=== PATIENT | male | born 1955 | race Caucasian/White ===

== ENCOUNTER 2024-06-17 14:15 | Emergency (ER) | payer MEDICARE, OTHER, SELFPAY ==
[2024-06-17] VITALS (12 sets, daily range): BP systolic 145–149; BP diastolic 75–88; PULSE 67; TEMP 36.8; O2SAT 96–98; BMI 23.1
--- NOTE | 2024-06-17 14:53 | ED.GENADUL1 ---
HPI HPI - General Adult General Chief complaint: Abdominal Pain Stated complaint: LEFT SIDE PAIN Time Seen by Provider: 06/17/24 14:27 Source: patient Mode of arrival: walk-in Limitations: no limitations History of Present Illness HPI narrative: 69-year-old male presents for left flank pain. It has been there for 2 days continuously. No injury or unusual activity. No dysuria or hematuria. He is worried about his spleen because his daughter who is a nurse told him it might be his spleen. He has never had a kidney stone. No anterior abdominal pain or right sided pain. Related Data Home Medications ?Medication ?Instructions ?Recorded ?Confirmed aspirin 81 mg tablet,delayed 81 mg PO DAILY 06/17/24 06/17/24 release (Adult Aspirin Regimen) tamsulosin 0.4 mg capsule 0.4 mg PO BEDTIME 06/17/24 06/17/24 trazodone 100 mg tablet 100 mg PO BEDTIME 06/17/24 06/17/24 Allergies Allergy/AdvReac Type Severity Reaction Status Date / Time No Known Drug Allergies Allergy Verified 06/17/24 14:44 Opioid HPI Opioid Management Most Recent Opioid Data: No Data to Display Review of Systems ROS Narrative A ten point review of systems is negative except as noted above. Exam Narrative Exam Narrative: Nurses note and vital signs reviewed and patient is not hypoxic. General: The patient appears well and in no apparent distress. Patient is resting comfortably on cart. Skin: Warm, dry, no pallor noted. There is no rash noted. Head: Normocephalic, atraumatic Eye: Normal conjunctiva, no drainage Ears, Nose, Mouth, and Throat: oral mucosa is moist. Nares patent. Cardiovascular: Regular Rate and Rhythm Respiratory: Patient is in no distress, no accessory muscle use, lungs are clear to auscultation, no wheezing, rales or rhonchi Back: non-tender, no CVA tenderness bilaterally to percussion. GI: Soft and nontender. The left flank area is examined there is no bruise or rash or abrasion. No palpable tenderness. Musculoskeletal: The patient has no evidence of calf tenderness, no pitting edema, symmetrical pulses noted bilaterally Neurological: A&O, normal speech Psychiatric: Cooperative Constitutional Vital Signs, click to edit/add: Last Vital Signs Temp 98.2 F 06/17/24 14:44 Pulse 67 06/17/24 14:44 Resp 18 06/17/24 14:44 BP 149/88 H 06/17/24 14:44 Pulse Ox 98 06/17/24 14:44 O2 Del Method Room Air 06/17/24 14:44 Course Vital Signs Vital signs: Vital Signs Temperature 98.2 F 06/17/24 14:44 Pulse Rate 67 06/17/24 14:44 Respiratory Rate 18 06/17/24 14:44 Blood Pressure 149/88 H 06/17/24 14:44 Pulse Oximetry 98 06/17/24 14:44 Oxygen Delivery Method Room Air 06/17/24 14:44 Temperature 98.2 F 06/17/24 14:44 Pulse Rate 67 06/17/24 14:44 Respiratory Rate 18 06/17/24 14:44 Blood Pressure 149/88 H 06/17/24 14:44 Pulse Oximetry 98 06/17/24 14:44 Oxygen Delivery Method Room Air 06/17/24 14:44 Medical Decision Making MDM Narrative Medical decision making narrative: CAT scan shows no explanation for his pain. Urinalysis and blood work is negative. The possibility of muscle pain was discussed with the patient and he is going to be discharged home. Treatment diagnosis and follow-up were discussed with the patient. There is no rash to suggest shingles. Differential Diagnosis Differential Diagnosis: AAA, kidney stone, UTI, muscle pain Lab Data Lab results reviewed: Yes I reviewed the patient's lab results Labs: Lab Results 06/17/24 Range/Units 14:50 WBC 8.0 (4.0-11.0) 10^3/uL RBC 4.83 (4.70-6.10) 10^6/uL Hgb 14.0 (14.0-18.0) g/dL Hct 42.8 (42.0-54.0) % MCV 88.6 (80.0-94.0) fL MCH 29.0 (25.9-34.0) pg MCHC 32.7 (29.9-35.2) g/dL RDW 13.2 (11.0-15.0) % Plt Count 331 (150-450) 10^3/uL MPV 9.9 (9.5-13.5) fL Neut % (Auto) 71.0 (43.0-75.0) % Lymph % (Auto) 18.0 L (20.5-60.0) % Garrett % (Auto) 8.4 (1.7-12.0) % Eos % (Auto) 0.9 (0.9-7.0) % Baso % (Auto) 1.3 (0.2-2.0) % Neut # (Auto) 5.7 (1.4-6.5) 10^3/uL Lymph # (Auto) 1.4 (1.2-3.8) 10^3/uL Garrett # (Auto) 0.7 (0.3-0.8) 10^3/uL Eos # (Auto) 0.1 (0.0-0.7) 10^3/uL Baso # (Auto) 0.1 (0.0-0.1) 10^3/uL Abs Immat Gran (auto) 0.03 (0.00-0.03) 10^3/uL Imm/Tot Granulo (auto) 0.4 (0.0-0.5) % Sodium 138 (136-145) mmol/L Potassium 4.3 (3.5-5.1) mmol/L Chloride 103 (98-107) mmol/L Carbon Dioxide 26.3 (21.0-32.0) mmol/L Anion Gap 13.0 BUN 19.0 H (7.0-18.0) mg/dL Creatinine 1.00 (0.70-1.30) mg/dL Est GFR ( Amer) >60 (>=60) Est GFR (Non-Af Amer) >60 (>=60) BUN/Creatinine Ratio 19.0 Glucose 90 (74-106) mg/dL Calcium 8.8 (8.5-10.1) mg/dL Urine Color Lt. yellow (YELLOW) Urine Clarity Clear (CLEAR) Urine pH 6.0 (5.0-9.0) Ur Specific [place] 1.025 (1.005-1.025) Urine Protein Negative (NEG/TRACE) mg/dL Urine Glucose (UA) Negative (NEGATIVE) mg/dL Urine Ketones Trace A (NEGATIVE) mg/dL Urine Occult Blood Negative (NEGATIVE) Urine Nitrite Negative (NEGATIVE) Urine Bilirubin Negative (NEGATIVE) Urine Urobilinogen 0.2 (0.2-1.0) EU/dL Ur Leukocyte Esterase Negative (NEGATIVE) Urine RBC None seen (0-2) #/HPF Urine WBC None seen (NONE SEEN) #/HPF Ur Squamous Epith Cells Rare (NONE/RARE) #/LPF Urine Crystals None seen (None Seen) #/HPF Urine Bacteria Trace A (NONE SEEN) #/HPF Urine Casts Seen A (NONE SEEN) #/LPF Hyaline Casts Rare Urine Mucus Trace A (NONE SEEN) Ur Culture Indicated? No Imaging Data CT scan - abdomen: Radiologist's impression: ITS Impressions Abdomen/Pelvis CT 06/17/24 15:01 IMPRESSION: 1. Bilateral nonobstructing nephrolithiasis. There are a few tiny 1 to 2 mm stones within the kidneys. No acute findings. 2. Marked diverticulosis of the colon. No acute inflammatory changes or suspicious findings. 3. Prominent wall thickening of urinary bladder; muscular hypertrophy versus cystitis. Poorly defined wall margins suggests possible cystitis. Electronically authenticated by: ASHER MARTE Date: 06/17/2024 15:37 Discharge Plan Discharge Stand Alone Forms: Portal Instructions Chief Complaint: Abdominal Pain Clinical Impression: Left flank pain Patient Disposition: Home, Self-Care Time of Disposition Decision: 15:52 Condition: Good Mode of Transportation: Private Vehicle Prescriptions / Home Meds: No Action tamsulosin 0.4 mg capsule 0.4 mg PO BEDTIME trazodone 100 mg tablet 100 mg PO BEDTIME aspirin [Adult Aspirin Regimen] 81 mg tablet,delayed release (DR/EC) 81 mg PO DAILY Print Language: Sammarinese Instructions: Flank Pain (ED) Referrals: Physician,Non-Staff, MD [Primary Care Provider] - 1 week
--- NOTE | 2024-06-17 15:01 | CT_ITS ---
[address] [address] Patient Name: TEZ MEJIA MRN: [id number] date: 1955 Sex: M Assigned Patient Location: ER Current Patient Location: Accession/Order Number: [id number] Exam Date: 06/17/2024 14:59 Report Date: 06/17/2024 15:37 At the request of: ALLIE BRAR Procedure: CT abdomen pelvis wo con EXAMINATION: CT abdomen pelvis wo con HISTORY: left flank pain, r/o stone COMPARISON: No relevant comparison available. TECHNIQUE: Axial, Coronal, and Sagittal images were obtained without and/or with IV contrast as indicated by examination type. Dose reduction techniques were achieved by using automated exposure control and/or adjustment of mA and/or kV according to patient size and/or use of iterative reconstruction technique. FINDINGS: LUNG BASES: No visible pulmonary or pleural disease. LIVER: No enlargement, atrophy, suspicious density, or significant focal lesion. BILIARY: No dilatation or calcification. PANCREAS: No lesion, fluid collection, or abnormal duct dilatation. SPLEEN: No enlargement or focal lesion. ADRENALS: No mass or enlargement. KIDNEYS: A few tiny 1-2 mm nonobstructing stones within kidneys. Unremarkable ureters. BOWEL/MESENTERY: Marked diverticulosis throughout the entire length of the colon. No visible mass, obstruction, or bowel wall thickening. AORTA/VASCULAR: Marked atherosclerotic disease. No aneurysm or dissection. RETROPERITONEUM: No mass or adenopathy. LYMPH NODES: No adenopathy. URINARY BLADDER: Circumferential wall thickening up to 1 cm. PELVIC ORGANS: Slightly prominent heterogeneous prostate. ABDOMINAL WALL: No mass or hernia. BONES: No bony lesion or fracture. OTHER: Negative. CT/CT abdomen pelvis wo con IMPRESSION: 1. Bilateral nonobstructing nephrolithiasis. There are a few tiny 1 to 2 mm stones within the kidneys. No acute findings. 2. Marked diverticulosis of the colon. No acute inflammatory changes or suspicious findings. 3. Prominent wall thickening of urinary bladder; muscular hypertrophy versus cystitis. Poorly defined wall margins suggests possible cystitis. Electronically authenticated by: ASHER MARTE Date: 06/17/2024 15:37
[2024-06-17 15:10] LABS: Bilirubin Urine NEGATIVE (NEGATIVE); Blood Urine NEGATIVE (NEGATIVE); Clarity Urine CLEAR (CLEAR); Color Urine LT. YELLOW (YELLOW); Glucose Urine UA NEGATIVE (NEGATIVE); Ketones Urine TRACE mg/dL (NEGATIVE); Leukocyte Esterase Urine NEGATIVE (NEGATIVE); Nitrite Urine NEGATIVE (NEGATIVE); Protein Urine NEGATIVE (NEG/TRACE); Specific Gravity Urine 1.025 (1.005-1.025); Urobilinogen Urine 0.2 EU/dL (0.2-1.0)
[2024-06-17 15:18] LABS: Calcium 8.8 mg/dL (8.5-10.1); Carbon Dioxide 26.3 mmol/L (21.0-32.0); Chloride 103 mmol/L (98-107); Estimated GFR (African America >60 (>=60); Estimated GFR (Non-African Ame >60 (>=60); Glucose 90 mg/dL (74-106); Potassium 4.3 mmol/L (3.5-5.1); Sodium 138 mmol/L (136-145)
[2024-06-17 15:21] LABS: Bacteria Urine TRACE #/HPF (NONE SEEN); RBC Urine NONE SEEN #/HPF (0-2); WBC Urine NONE SEEN #/HPF (NONE SEEN)
[2024-06-17 15:22] LABS: Cast Seen? SEEN #/LPF (NONE SEEN); Crystals Seen? None Seen #/HPF (None Seen); Hyaline Casts Urine RARE; Mucus Urine TRACE (NONE SEEN); Squamous Epithelial Cell Urine RARE #/LPF (NONE/RARE); Urine Culture Indicated NO
[2024-06-17 15:33] LABS: Basophils Absolute Auto 0.1 10^3/uL (0.0-0.1); Basophils Percent Auto 1.3 % (0.2-2.0); Eosinophils Absolute Auto 0.1 10^3/uL (0.0-0.7); Eosinophils Percent Auto 0.9 % (0.9-7.0); Hematocrit 42.8 % (42.0-54.0); Immature Granulocytes Abs Auto 0.03 10^3/uL (0.00-0.03); Immature Granulocytes Pct Auto 0.4 % (0.0-0.5); Lymphocytes Absolute Auto 1.4 10^3/uL (1.2-3.8); Mean Corpuscular HGB Conc 32.7 g/dL (29.9-35.2); Mean Corpuscular Volume 88.6 fL (80.0-94.0); Mean Platelet Volume 9.9 fL (9.5-13.5); Monocytes Absolute Auto 0.7 10^3/uL (0.3-0.8); Monocytes Percent Auto 8.4 % (1.7-12.0); Neutrophils Absolute Auto 5.7 10^3/uL (1.4-6.5); Platelet Count 331 10^3/uL (150-450); Red Blood Count 4.83 10^6/uL (4.70-6.10); Red Cell Distribution Width 13.2 % (11.0-15.0)
== END 2024-06-17 16:08 | disposition home or self-care (01) ==
PROVIDERS: Emergency Provider Emergency Medicine
DX: R10.9 Unspecified abdominal pain (principal)
CPT/HCPCS: 36415; 74176; 80048; 81001; 85025; 99284

== ENCOUNTER 2024-09-08 09:53 | Outpatient (OUT) | payer MEDICARE, OTHER, SELFPAY ==
--- OUTSIDE RECORDS SUMMARY | 2024-09-08 10:00 | XMS_ITS | CCD ---
Author Organization [facility] Care Team Providers Care Iron Guardrail Installer Name Role Phone Reed Vee Unavailable Ernesto Campos Unavailable Glenny Floyd Unavailable Libertad Noland Unavailable Curtis Medina Unavailable JOHAN ., DR CATHLEEN Shay Primary Care Unavailable ELIER ., PRACHI Admitting Unavailable ELIER ., PRACHI Attending Unavailable CORMIER ., DR CATHLEEN Shay Admitting Unavailable CORMIER ., DR CATHLEEN Shay Attending Unavailable CORMIER ., DR CATHLEEN Shay Primary Care Unavailable CORMIER ., DR CATHLEEN Shay Consulting Unavailable RAYMOND, DR NAHUM Hill Consulting Unavailable MD Cathleen Cormier Primary Care Provider MD Curtis Medina Attending Provider [phone] Rebekah Bartlett Primary Care Physician YESSICA CAMPOS Attending Unavailable REBEKAH BARTLETT Referring Unavailable MD Cathleen Cormier Primary Care Provider [phone] DESIRAE Edmond Attending Provider Cathleen Cormier Primary Care Unavailable Mayito Cheryl M Attending Unavailable Mayito, Cheryl M Admitting Unavailable Irineo, OUTSOLE LEVELER Rebekah L Attending Unavailable Irineo, OUTSOLE LEVELER Rebekah L Attending Unavailable Irineo, OUTSOLE LEVELER Rebekah L Attending Unavailable Irineo, OUTSOLE LEVELER Rebekah L Attending Unavailable Irineo, OUTSOLE LEVELER Rebekah L Admitting Unavailable Irineo, OUTSOLE LEVELER Rebekah L Attending Unavailable Irineo, OUTSOLE LEVELER Rebekah L Attending Unavailable Irineo, OUTSOLE LEVELER Rebekah L Attending Unavailable Irineo, OUTSOLE LEVELER Rebekah L Attending Unavailable Irineo, Rebekah L Attending Unavailable Irineo, Rebekah L Admitting Unavailable Allergies Allergy Classification Reported Allergen(s) Allergy Type Date of Onset Reaction(s) Facility (1 source) No Known Medication Allergies; Translations: [No Known Medication Allergies] Propensity to adverse reactions (disorder) [facility] Repository Medications Current Medications Medication Drug Class(es) Dates Sig (Normalized) Sig (Original) Albuterol (3 sources) beta2-Adrenergic Agonist Start: 07-31-2024 Albuterol Sulfate Active 2 INH INHALATION EVERY 4-6 HOURS 6.7 14 July 31, 2024 12:00am Start: 07-03-2022 take 2 puff(s) by in halation every four to six hours as needed Albuterol Sulfate HFA 108 (90 Base) MCG/ACT 2 puffs as needed Inhalation every 4-6 hours for 14 days Jun, Active aspirin 81 mg oral tablet (7 sources) Platelet Aggregation Inhibitor, Nonsteroidal Anti-inflammatory Drug take 1 tablet by mouth once daily Aspirin 81 81 MG 1 tablet Orally Once a day Active Azithromycin (3 sources) Macrolide Antimicrobial Start: 07-31-20 Azithromycin Active 0 PO .COMPLEX 6 July 31, 2024 12:00am For 250 mg dose pack: take 500 mg today (day 1), then 250 mg for 4 days (days 2-5) PO Start: 07-03-2022 Azithromycin 2 50 MG 2 tablet on the first day, then 1 tablet daily for 4 days Orally Once a day for 5 day(s) Jun, Active benzonatate 100 mg oral capsule (2 sources) Non-narcotic Antitussive Start: 07-03-2022 take 1 capsule by mouth every eight hours Tessalon Perles 100 MG 1 capsule as needed Orally Three times a day for 7 days Jun, Active Budesonide 0.09 MG/ACTUAT Dry Powder Inhaler (1 source) Corticosteroid Start: 08-15-2024 budesonide 90 mcg/inh inhalation powder 1 inh, Inhalation, BID, 1 EA, Refill(s) 11, [facility]/pharmacy #[id number], 183.5, cm, 08/09/24 8:20:00 EDT, Height/Length Dosing, 72.6, kg, 08/09/24 8:20:00 EDT, Weight Dosing Start Date: 08/15/24 Status: Ordered cyclobenzaprine hydrochloride 5 mg oral tablet (1 source) Muscle Relaxant Start: 04-24-2022 take 1 tablet by mouth every eight hours Cyclobenzaprine HCl 5 MG 1 tablet as needed Orally Three times a day Apr, Active fluticasone / vilanterol (1 source) Corticosteroid, beta2-Adrenergic Agonist Start: 08-15-2024 take 1 puff(s) by inhalation once daily Breo Ellipta 100 mcg-25 mcg inhalation powder 1 puff(s), Inhalation, Daily, 28 blister(s), Refill(s) 2, 30 dose unit, [facility]/pharmacy #[id number], 183.5, cm, 08/09/24 8:20:00 EDT, Height/Length Dosing, 72.6, kg, 08/09/24 8:20:00 EDT, Weight Dosing Start Date: 08/15/24 Status: Ordered methylPREDNISolone 4 mg oral tablet (4 sources) Corticosteroid Start: 07-31-2024 take 1 tablet by mouth once Methylprednisolone (Medrol (Alex)) 4 mg tablets,dose pack Active 0 PO per package directions July 31, 2024 12:00am PO PER PKG DIR Start: 07-03-2022 methylPREDNISo lone 4 MG as directed Orally for daily dose take half with breakfast, half with dinner for 6 days Jun, Active Start: 04-24-2022 methylPREDNISo lone 4 MG as directed Orally Once a day for 6 days Apr, Active rOPINIRole 0.25 mg oral tablet (1 source) Nonergot Dopamine Agonist Start: 08-25-2024 take 1 tablet by mouth at bedtime ropinirole 0.25 mg Tab 0.25 mg = 1 tab(s), Oral, Bedtime, # 30 tab(s), Refills(s) 2, Pharmacy: [facility]/pharmacy #[id number], 183.5, cm, 08/25/24 8:26:00 EDT, Height/Length Dosing, 72.8, kg, 08/25/24 8:26:00 EDT, Weight Dosing Start Date: 08/25/24 Status: Ordered Symbicort 80/4.5 inhalation aerosol with adapter (1 source) Start: 08-31-2024 Symbicort 80/4 .5 inhalation aerosol with adapter See Instructions, 30.6 EA, Refill(s) 2, INHALE 2 PUFFS BY MOUTH TWICE A DAY, [id number], 183.5, cm, 08/25/24 8:26:00 EDT, Height/Length Dosing, 72.8, kg, 08/25/24 8:26:00 EDT, Weight Dosing Start Date: 08/31/24 Status: Ordered tamsulosin hydrochloride 0.4 mg oral capsule (9 sources) alpha-Adrenergi c Cyndi Start: 08-25-2024 End: 08-20-2025 take 1 capsule by mouth once daily tamsulosin 0.4 mg Cap 0.4 mg = 1 cap(s), Oral, Daily, X 90 day(s), # 90 cap(s), Refills(s) 3, [id number], 183.5, cm, 08/25/24 8:26:00 EDT, Height/Length Dosing, 72.8, kg, 08/25/24 8:26:00 EDT, Weight Dosing Start Date: 08/25/24 Stop Date: 08/20/25 Status: Ordered Start: 01-09-2023 take 1 capsule by [facility] once daily tamsulosin 0.4 mg Cap 0.4 mg = 1 cap(s), Oral, Daily, # 90 cap(s), Refills(s) 3, Pharmacy: [id number], 183.5, cm, 09/16/23 9:38:00 EST, Height/Length Dosing, 71.9, kg, 09/16/23 9:38:00 EST, Weight Dosing Start Date: 09/16/23 Status: Ordered take 1 capsule by [facility] every twenty-four hours Tamsulosin HCl 0.4 MG 1 capsule Orally Once a day Not-Taking traZODone hydrochloride 100 mg oral tablet (11 sources) Serotonin Reuptake Inhibitor Start: 01-09-2023 take 1 tablet by mouth three times daily traZODONE 100 mg Tab 100 mg = 1 tab(s), Oral, TID, # 90 tab(s), Refills(s) 3, [id number], 183.5, cm, 09/16/23 9:38:00 EST, Height/Length Dosing, 71.9, kg, 09/16/23 9:38:00 EST, Weight Dosing Start Date: 04/18/24 Status: Ordered take 1 tablet by radha th every twenty-four hours traZODone HCl 100 MG 1 tablet at bedtime Orally Once a day Active traZODone HCl Ac tive Completed/Discontinued Medications Medication Drug Class(es) Dates Sig (Normalized) Sig (Original) diclofenac sodium 50 mg delayed release oral tablet (8 sources) Nonsteroidal Anti-inflammatory Drug Diclofenac Sodium 50 MG Oral for 30 Not-Taking ibuprofen 800 mg oral tablet (8 sources) Nonsteroidal Anti-inflammatory Drug Start: 09-16-2023 take 1-3 tablets by mouth every six hours as needed ibuprofen 800 mg Tab 800 mg = 1 tab(s), Oral, q6hr, PRN Pain 1-3, Refills(s) 0 Start Date: 09/16/23 Status: Ordered Carolina Not-Murphy Figueroa Active Problems Active Problems Problem Classification Problem Date Documented Date Episodic/Chronic Chronic obstructive pulmonary disease and bronchiectasis (1 source) Emphysematous bronchitis 08-09-2024 Chronic Chronic obstructive pulmonary disease and bronchiectasis (3 sources) Bronchitis, not specified as acute or chronic; Translations: [Bronchitis] Onset: 07-03-2022 Resolved: 07-03-2022 Episodic Immunizations and screening for infectious disease (3 sources) Contact with and (suspected) exposure to other viral communicable diseases; Translations: [Contact with and (suspected) exposure to other viral communicable diseases] Onset: 07-03-2022 Resolved: 07-03-2022 Episodic Osteoarthritis (9 sources) Arthropathy of bilateral hip joints; Translations: [Bilateral primary osteoarthritis of hip] Onset: 09-17-2021 Resolved: 09-17-2021 Chronic Other and unspecified benign neoplasm (1 source) History of polyp of colon; Translations: [Personal history of colonic polyps] Episodic Other and unspecified benign neoplasm (1 source) Personal history of colonic polyps Episodic Other connective tissue disease (1 source) Cramp in lower limb 08-25-2024 Episodic Other connective tissue disease (1 source) Hand cramps 08-25-2024 Episodic Other lower respiratory disease (1 source) Cough; Translations: [Cough] 07-31-2024 Episodic Other nervous system disorders (7 sources) Chronic pain; Translations: [Other chronic pain] Chronic Other nervous system disorders (3 sources) Other chronic pain Onset: 09-30-2021 Resolved: 01-16-2022 Chronic Other nutritional; endocrine; and metabolic disorders (1 source) Weight loss 08-09-2024 Episodic Residual codes; unclassified (2 sources) History of colonoscopy; Translations: [Other specified postprocedural states] 01-09-2023 Episodic Residual codes; unclassified (1 source) Other specified postprocedural states; Translations: [Other postprocedural status] 01-09-2023 Episodic Spondylosis; intervertebral disc disorders; other back problems (12 sources) Bilateral inflammation of sacroiliac joint; Translations: [Sacroiliitis, not elsewhere classified] Onset: 09-17-2021 Resolved: 01-16-2022 Chronic Substance-related disorders (4 sources) Nicotine dependence, cigarettes, uncomplicated; Translations: [NICOTINE DEPEND CIGARETTES UNCOMP] Onset: 12-24-2022 Chronic Unclassified (7 sources) Patient encounter status 09-16-2023 Unclassified (1 source) Cough, unspecified; Translations: [Cough, unspecified] Onset: 07-31-2024 Unclassified (1 source) Body mass index 20-24 - normal 08-25-2024 Viral infection (1 source) Disease caused by 2019-nCoV 07-27-2024 Past or Other Problems Problem Classification Problem Date Documented Da te Episodic/Chronic Other injuries and conditions due to external causes (1 source) Unspecified injury of left shoulder and upper arm, initial encounter Onset: 04-24-2022 Resolved: 04-24-2022 Episodic Residual codes; unclassified (4 sources) Procedure and treatment not carried out due to patient leaving prior to being seen by health care provider; Translations: [PROC AND TX NOT CARRIED OUT PT LEAVE] Onset: 09-21-2022 Episodic Unclassified (7 sources) Other low back pain; Translations: [Other low back pain] Unclassified (3 sources) Other low back pain M54.59 Onset: 09-30-2021 Resolved: 01-16-2022 Results Test Name Value Interpretation Reference Range Facility .Interpretation:on 4 HCV Ab IA Ql Comment Invalid Interpretation Code [facility] Comment on above: Result Comment: Not infected with HCV unless early or acute infection is suspected (which may be delayed in an immunocompromised individual), or other evidence exists to indicate HCV infection. Performed at: [address] [id number] PhD Kyrie Simeon Performed By: #### 2 [id number] #### [facility] [address] [place] [address] HCV Antibody RFX to Quant PC Dameon 09-02-2024 HCV IgG IA Ql Non-Reactive Invalid Interpretation Code Non Reactive [facility] Comment on above: Result Comment: Perf ormed at: [facility] [address] [id number] PhD Kyrie Amandajuan Performed By: #### 2 [id number] #### [facility] [address] [place] [address] CHEMISTRYOrdered By: SYSTEM SYSTEM on 08-31-2024 Cholesterol [Mass/Vol] 272 mg/dL High 120 - 200 mg/dL Remisol Chem Cholesterol in HDL [Mass/Vol] 113 mg/dL Invalid Interpretation Code [facility] Comment on above: Result Comment: '>= 60 LOW RISK' '<= 40 HIGH RISK' Cholesterol in LDL [Mass/Vol] 149 mg/dL High <=129mg/dL Remisol Chem Cholesterol in VLDL [Mass/Vol] 19 mg/dL Normal 7 - 40 mg/dL Remisol Chem Triglyceride [Mass/Vol] 94 mg/dL Normal <=149mg/dL Remisol Chem CHEMISTRYOrdered By: Ginny Lilly on 08-31-2024 Prostate specific Ag [Mass/Vol] 1.8 ng/mL Normal 0.1 - 3.5 ng/mL [facility] Comment on above: Interpretive Data: T he concentration of PSA determined by different manufacturers can vary due to differences in assay methods and reagent specificity. Values obtained from different assay methods cannot be used interchangeably. The methodology used for this result was chemiluminescence using [employer] Access Hybritech PSA reagent. Lipid Panelon 08-31-2024 Cholesterol [Mass/Vol] 272 mg/dL High 120-200 [facility] Comment on above: Performed By: #### 2 [id number] #### [facility] [address] [place] [address] Cholesterol in HDL [Mass/Vol] 113 mg/dL Invalid Interpretation Code [facility] Comment on above: Result Comment: '>= 60 LOW RISK' '<= 40 HIGH RISK' Performed By: #### 2 [id number] #### [facility] [address] [place] [address] Cholesterol in LDL [Mass/Vol] 149 mg/dL High <=129 [facility] Comment on above: Performed By: #### 2 [id number] #### [facility] [address] [place] [address] Cholesterol in VLDL [Mass/Vol] 19 mg/dL Normal 7-40 [facility] Comment on above: Performed By: #### 2 [id number] #### [facility] [address] [place] [address] Triglyceride [Mass/Vol] 94 mg/dL Normal <=149 [facility] Comment on above: Performed By: #### 2 [id number] #### [facility] [address] [place] [address] PSA Screen, Totalon 08-31-20 Prostate specific Ag [Mass/Vol] 1.8 ng/mL Normal 0.1-3.5 [facility] Comment on above: Result Comment: The concentration of PSA determined by different manufacturers can vary due to differences in assay methods and reagent specificity. Values obtained from different assay methods cannot be used interchangeably. The methodology used for this result was chemiluminescence using [employer]'s Access Hybritech PSA reagent. Performed By: #### 1 [id number] #### [facility] [address] [place] [address] Ambulatory Visit Summaryon 1 Ambulatory Visit Summary Ambulatory Visit Summary TEZ MEJIA :1955 Visit Date:08/25/2024 Ambulatory Visit Instructions Your Diagnosis Encounter for initial annual wellness visit in Medicare patient COPD with chronic bronchitis Screening for hyperlipidemia History of smoking 25-50 pack years Encounter for hepatitis C screening test for low risk patient Screening PSA (prostate specific antigen) Tests Performed CT Chest, Low Dose Screening -- Results Pending -- Please visit your patient portal for your results or contact your primary care physician. Your Care Team Attending Physician - Rebekah Grace Primary Care Physician - Rebekah Grace This Is Your Medications List budesonide (budesonide 90 mcg/inh inhalation powder) fluticasone-vilanter ol (Breo Ellipta 100 mcg-25 mcg inhalation powder) ropinirole (ropinirole 0.25 mg Tab) tamsulosin (tamsulosin 0.4 mg Cap) trazodone (traZODONE 100 mg Tab) Procedures Performed Colonoscopy, Surgery, Surgery, Tonsillectomy with adenoidectomy. Discharge Vitals Heart Rate (Peripheral) 77 Respiratory Rate 14 Blood Pressure 118/70 Height 183.5 cm Height 72 in Weight 72.8 kg Weight 160.16 lb BMI 21.62 What to do next Scheduled Follow-Up Appointments Thursday 8:20 AM EDT Where: [address] [address]- Thursday 8:00 AM EDT Where: [address] [address]- You Need to Complete the Following HCV Antibody RFX to Quant PCR, Blood, Routine collect, 08/25/24, Order for future visit, Lab Collect, Encounter for hepatitis C screening test for low risk patient, Print Label By Order Location Lipid Panel, Blood, Routine collect, 08/25/24, Order for future visit, Lab Collect, Screening for hyperlipidemia, Print Label By Order Location PSA Screen, Total, Blood, Routine collect, 08/25/24, Order for future visit, Lab Collect, Screening PSA (prostate specific antigen), Print Label By Order Location Medications What How Much When Why Instructions Changed tamsulosin (tamsulosin 0.4 mg Cap) 1 Capsules By Mouth Every day Duration: 90 Days Unchanged budesonide (budesonide 90 mcg/ inh inhalation powder) 1 Inhalation Inhalation 2 times a day Unchanged fluticasone-vilanter ol (Breo Ellipta 100 mcg-25 mcg inhalation powder) 1 Puffs Inhalation Every day 30 dose unit Unchanged ropinirole (ropinirole 0.25 mg Tab) 1 Tablets By Mouth At bedtime Leg cramping Cramping of hands BMI 21.0-21.9, adult Former smoker Unchanged trazodone (traZODONE 100 mg Tab) 1 Tablets By Mouth 3 times a day Allergies No Known Medication Allergies Problems Ongoing - Any problem that you are currently receiving treatment for. BMI 21.0-21.9, adult Colon cancer screening COPD with chronic bronchitis COVID-19 Cramping of hands Leg cramping Prostate cancer screening Screening for hyperlipidemia Weight loss Wellness examination Patient Survey You may receive a survey via text or e-mail asking about your office visit. Please share your experience with us by completing your survey. We appreciate your feedback and thank you for choosing us for your care. Education Materials Living with COPD Being diagnosed with chronic obstructive pulmonary disease (COPD) changes your life physically and emotionally. Having COPD can affect your ability to work and do things you enjoy. COPD is not the same for everyone, and it may change control analyst time. Your health care providers can help you come up with the COPD management plan that works best for you. How to manage lifestyle changes Treatment plan ? Work closely with your health care providers. ? Follow your COPD management plan. This plan includes: ? Instructions about activities, exercises, diet, medicines, what to do when COPD flares up, and when to call your health care provider. ? A pulmonary rehabilitation program. In pulmonary rehab, you will learn about COPD, do exercises for fitness and breathing, and get support from health care providers and other people who have COPD. Managing emotions and stress Living with a chronic disease means you may also struggle with stressful emotions, such as sadness, fear, and worry. Here are some ways to manage these emotions: ? Talk to someone about your fear, anxiety, depression, or stress. ? Learn strategies to avoid or reduce stress and ask for help if you are struggling with depression or anxiety. ? Consider joining a COPD support group, online or in person. Adjusting to changes COPD may limit the things you can do, but you can make certain changes to help you cope with the diagnosis. ? Ask for help when you need it. Getting support from friends, family, and your health care team is an important part of managing the condition. (more content not included)... Normal [facility] Ambulatory Visit Summary Ambulatory Visit Summary TEZ MEJIA :1955 Visit Date:08/25/2024 Ambulatory Visit Instructions Your Diagnosis COPD with chronic bronchitis Leg cramping, Cramping of hands BMI 21.0-21.9, adult Former smoker Your Care Team Attending Physician - Rebekah Grace Primary Care Physician - Rebekah Grace This Is Your Medications List budesonide (budesonide 90 mcg/inh inhalation powder) fluticasone-vilanter ol (Breo Ellipta 100 mcg-25 mcg inhalation powder) ropinirole (ropinirole 0.25 mg Tab) tamsulosin (tamsulosin 0.4 mg Cap) trazodone (traZODONE 100 mg Tab) Procedures Performed Colonoscopy, Surgery, Surgery, Tonsillectomy with adenoidectomy. What to do next Scheduled Follow-Up Appointments Thursday 8:20 AM EDT Where: [address] [address]- Thursday 8:00 AM EDT Where: [address] [address]- You Need to Complete the Following HCV Antibody RFX to Quant PCR, Blood, Routine collect, 08/25/24, Order for future visit, Lab Collect, Encounter for hepatitis C screening test for low risk patient, Print Label By Order Location Lipid Panel, Blood, Routine collect, 08/25/24, Order for future visit, Lab Collect, Screening for hyperlipidemia, Print Label By Order Location PSA Screen, Total, Blood, Routine collect, 08/25/24, Order for future visit, Lab Collect, Screening PSA (prostate specific antigen), Print Label By Order Location Medications What How Much When Why Instructions New ropinirole (ropinirole 0.25 mg Tab) 1 Tablets By Mouth At bedtime Leg cramping Cramping of hands BMI 21.0-21.9, adult Former smoker Refills: [address] [facility]/pharmacy #[id number] New tamsulosin (tamsulosin 0.4 mg Cap) 1 Capsules By Mouth Every day Duration: 90 Days Refills: [address] [facility]/pharmacy #[id number] Unchanged budesonide (budesonide 90 mcg/ inh inhalation powder) 1 Inhalation Inhalation 2 times a day Unchanged fluticasone-vilanter ol (Breo Ellipta 100 mcg-25 mcg inhalation powder) 1 Puffs Inhalation Every day 30 dose unit Unchanged trazodone (traZODONE 100 mg Tab) 1 Tablets By Mouth 3 times a day Pharmacy Information [facility]/pharmacy #[id number]: [address] [place], [place] [id number] [phone] Allergies No Known Medication Allergies Problems Ongoing - Any problem that you are currently receiving treatment for. BMI 21.0-21.9, adult Colon cancer screening COPD with chronic bronchitis COVID-19 Cramping of hands Leg cramping Prostate cancer screening Screening for hyperlipidemia Weight loss Wellness examination Patient Survey You may receive a survey via text or e-mail asking about your office visit. Please share your experience with us by completing your survey. We appreciate your feedback and thank you for choosing us for your care. [facility] Family Medicine Office/Clini c Noteon 08-25-2024 Family Medicine Office/Clinic Note Family Medicine Office/Clinic Note Chief Complaint Initial Medicare Wellness Review of Systems PHQ Score Initial Depression Screen Score: 2 SCORE Physical Exam Vitals & Measurements HR: 77(Peripheral) RR: 14 BP: 118/70 SpO2: 94% HT: 183.5 cm HT: 72 in WT: 72.8 kg WT: 160.16 lb BMI: 21.62 Assessment/Plan 1. Encounter for initial annual wellness visit in Medicare patient (Z00.00: Encounter for general adult medical examination without abnormal findings) The patient was given a customized and personalized print out of all the current AHRQ USPSTF?s recommendations for preventative services and all current CDC recommended immunizations, relevant risk recommendations and the following patient brochures were given. Reviewed Medicare Prevention Services checklist. CDC-Falls Prevention and home safety screening reviewed. Patient denies any falls in last 12 months, voices no worry about falling. Exhibits no problems with sitting, standing or ambulation. Patient aware with keeping walk way area free of clutter to prevent tripping and/or falling. [place] Advance Directives reviewed. Patient has appointment with trust and estates attorney to get filled out, encouraged to bring in for scanning into chart once complete. Patient denies any problems with ADL?s and Instrumental ADL?s. Cognitive screening completed with memory and clock face drawing. No deficits noted. Patient recited 2/3 memory words. Immunization record reviewed 2 COVID vaccines have been administered, with 1 Booster received. Patient to discuss flu shot with provider at appointment after AWV as he still is having congestion from previous illness. Allergies and medications reviewed and up to date. No concerns with taking medication as prescribed. Reviewed OTC medications, medication list up to date. Blood tests were reviewed: Discussed what tests need to be updated. Labs were ordered. Labs to be completed with [facility]. No concerns with bowel/ bladder. Colonoscopy last completed 01/09/[address] Medina. Repeat 5 years. Reviewed pain symptoms: pain in left hand x 6 months, rates pain 2/10. Reviewed all outside providers that patient follows. Last visit summary notes available in chart and/or have been requested. Patient declines any signs or symptoms of depression at this time. 8 minutes spent with screening and documentation. PHQ2 screening score 0. Patient drinks alcohol 4 or more times weekly 1-2 drinks, denies concerns. 8 minutes spent with screening and documentation. Audit score 5. Follow up scheduled with PCP, today after AWV AWV has been scheduled, 08/28/2025 Medicare provides yearly screening for alcohol and depression concerns. This is completed during our Medicare wellness visit for those who do not have a current diagnosis of depression or concerns with alcohol use. I spent a total of 17 minutes on this date of service which included preparing to see the patient, face to face patient care, completing clinical documentation, obtaining and/or reviewing separately obtained history, counseling and educating the patient with handouts. Explanations were provided with reviewing questionnaires. AUDIT risk assessment screening completed, risk score 5 with patient denying concerns with use. Completed PHQ-2 risk assessment for depression with risk score 6, negative findings. Patient has been reminded to notify the provider if there would be a change or concerns with symptoms with fear, unable to sleep, worrying too much or feeling down and/or sad with lost of interest with daily activities. Will continue to monitor with screening yearly during Medicare wellness visits. 2. 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 Patient has follow up after AWV with provider. Will discuss with provider. Encouraged to remain active, reviewed Pulmonary nutritional recommendations handout during visit. Will continue to monitor for changes and/or concerns with office visits. Pulse ox today was 94%. 3. Screening for hyperlipidemia (Z13.220: Encounter for screening for lipoid disorders) Cholesterol screening labs ordered, patient to have done at office. 4. History of smoking 25-50 pack years (Z87.891: Personal history of nicotine dependence) This included preparing to see the patient, [id number] patient care, completing clinical documentation and reviewing preventative testings that are available. Patient previously smoked 30 PPD years, currently not smoking. Pt quit 1 years ago. Patient does meet criteria for repeated LDCT-scan and was ordered today at [facility] per patient request. 5. Encounter for hepatitis C screening test for low risk patient (Z11.59: Encounter for screening for other viral diseases) Discussed with patient the risk of Hepatitis C for people born between 0445-4327. Handout [facility]-Hepatitis C given. Orders for Hepatitis C screening based on year of placed, patient will have lab drawn with routine la (more content not included)... Normal [facility] Comment on above: Result Comment: Elec tronically Signed By: Rebekah Grace\.br\Date and Time Signed: 08/25/24 12:50 EDT\.br\Electronically Co-Signed By: Fanny Haider\.br\Date and Time Co-Signed: 08/25/24 11:05 EDT Family Medicine Office/Clinic Note Family Medicine Office/Clinic Note HPI Staff Tez is a 69 year old female presenting with recheck breathing FCO- If breathing is not improved referral will be placed today was tx'd with Synbicort, Z alex, and Kenalog injection Confusion with inhaler. Budesonide inhaler- has 11 refills on. Didn't think he was supposed to continue with. Currently using Breo inhaler now. Was $100. Does not want to refill at that march. Fanny is contacting prior auth department. Cramping in both hands for a cpl months. Was getting woken up with leg cramps. Took his prescription of ropinirole. States it has helped with leg cramps. Interested in flu shot. Wants Rebekah's opinion. History of Present Illness pt presents today to follow up on COPD flare up Physical Exam General: alert, no acute distress ENMT: oral mucosa moist, no pharyngeal erythema or exudate Cardiovascular: regular rate and rhythm, normal peripheral perfusion Respiratory: Lungs CTA, respirations non labored Extremities: no deformity, no trauma Neurological: oriented x 4, LOC appropriate for age, CN II-XII intact, motor strength equal & normal bilaterally, speech normal Assessment/Plan 1. 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 pt is feeling much better. is using budosenide inhaler. states it was over 100 and he can not afford to continue it. will finish this inhaler and see how he feels. if he starts feeling like it is flaring up again, will refer to Dr. Cortez for PFT and further evaluation. all questions answered. RTC as needed 2. Leg cramping, (R25.2: Cramp and spasm)Cramping of hands pt has been having leg cramps that wake him up every night. took his 's medication and it has helped. will send ropinirole in to pharmacy. Ordered: ropinirole, 0.25 mg = 1 tab(s), Oral, Bedtime, # 30 tab(s), Refills(s) 2, Pharmacy: [facility]/pharmacy #[id number], 183.5, cm, 08/25/24 8:26:00 EDT, Height/Length Dosing, 72.8, kg, 08/25/24 8:26:00 EDT, Weight Dosing Body Mass Index (BMI) documented 3008F Current tobacco non-user 1036F Depression Screening Negative 3352F Discharge medications reconciled with current medications in outpatient record 1111F Influenza immunization status assessed 1030F Medication list documented in medical record 1159F Most recent diastolic blood pressure <80 mm Hg 3078F Patient screen for fall risk: no falls in last year or 1 fall with no injury in last year 1101F Review of all meds by a prescribing practitioner or clinical pharmacist documented in EHR 1160F Systolic BP <130 mm Hg (Most Recent) 3074F 4. BMI 21.0-21.9, adult (Z68.21: Body mass index [BMI] 21.0-21.9, adult) BMI education given Ordered: ropinirole, 0.25 mg = 1 tab(s), Oral, Bedtime, # 30 tab(s), Refills(s) 2, Pharmacy: [facility]/pharmacy #[id number], 183.5, cm, 08/25/24 8:26:00 EDT, Height/Length Dosing, 72.8, kg, 08/25/24 8:26:00 EDT, Weight Dosing 5. Former smoker (Z87.891: Personal history of nicotine dependence) continue not smoking Ordered: ropinirole, 0.25 mg = 1 tab(s), Oral, Bedtime, # 30 tab(s), Refills(s) 2, [id number], 183.5, cm, 08/25/24 8:26:00 EDT, Height/Length Dosing, 72.8, kg, 08/25/24 8:26:00 EDT, Weight Dosing CT Chest, Low Dose Screening Orders: nirmatrelvir-ritonav ir, See Instructions, Oral, BID, 30 tab(s), Refill(s) 0, 3 Tablets twice daily for 5 days, [facility]/pharmacy #[id number], 183.5, cm, 07/27/24 13:05:00 EDT, Height/Length Dosing, 74.2, kg, 07/27/24 13:05:00 EDT, Weight Dosing tamsulosin, 0.4 mg = 1 cap(s), Oral, Daily, X 90 day(s), # 90 cap(s), Refills(s) 3, Pharmacy: [facility]/pharmacy #[id number], 183.5, cm, 08/25/24 8:26:00 EDT, Height/Length Dosing, 72.8, kg, 08/25/24 8:26:00 EDT, Weight Dosing tamsulosin, 0.4 mg = 1 cap(s), Oral, Daily, # 90 cap(s), Refills(s) 3, [id number], 183.5, cm, 08/09/24 8:20:00 EDT, Height/Length Dosing, 72.6, kg, 08/09/24 8:20:00 EDT, Weight Dosing HCV Antibody RFX to Quant PCR Lipid Panel PSA Screen, Total Follow-up No qualifying data available Problem List/Past Medical History Ongoing BMI 21.0-21.9, adult Colon cancer screening COPD with chronic bronchitis COVID-19 Cramping of hands Leg cramping Prostate cancer screening Screening for hyperlipidemia Weight loss Wellness examination Historical No qualifying data Procedure/Surgical History Colonoscopy, Surgery, Surgery, Tonsillectomy with adenoidectomy. Medications Breo Ellipta 100 mcg-25 mcg inhalation powder, 1 puff(s), Inhalation, Daily, 2 refills budesonide 90 mcg/inh inhalation powder, 1 inh, Inhalation, BID, 11 refills, Not taking ropinirole 0.25 mg Tab, 0.25 mg= 1 tab(s), Oral, Bedtime, 2 refills tamsulosin 0.4 mg Cap, 0.4 mg= 1 cap(s), Oral, Daily, 3 refills traZODONE 100 mg Tab, 100 mg= 1 tab(s), Oral, TID, 3 refills Allergies No Known Medication Allergies Social History Alcohol Current, Beer, 3-5 jay (more content not included)... Normal [facility] Comment on above: Result Comment: Elec tronically Signed By: Rebekah Grace\.br\Date and Time Signed: 08/25/24 09:44 EDT Ambulatory Visit Summaryon 1 Ambulatory Visit Summary Ambulatory Visit Summary TEZ MEJIA :1955 Visit Date:08/09/2024 Ambulatory Visit Instructions Your Diagnosis COPD with chronic bronchitis Colon cancer screening Former smoker BMI 21.0-21.9, adult Your Care Team Attending Physician - Rebekah Grace Primary Care Physician - Rebekah Grace This Is Your Medications List nirmatrelvir-ritonav ir (Paxlovid 150 mg-100 mg oral tablet) tamsulosin (tamsulosin 0.4 mg Cap) trazodone (traZODONE 100 mg Tab) Procedures Performed Colonoscopy, Surgery, Surgery, Tonsillectomy with adenoidectomy. Discharge Vitals Temperature (Temporal Artery) 36.4 ?C Heart Rate (Peripheral) 78 Respiratory Rate 18 Blood Pressure 128/86 Height 183.5 cm Height 72 in Weight 72.60 kg Weight 159.72 lb BMI 21.56 What to do next Scheduled Follow-Up Appointments 2023 8:00 AM EDT With: Where: [address] [address]- 2023 8:40 AM EDT With: Rebekah Grace Where: [facility] Medicine [address] [address]- Medications What How Much When Instructions Unchanged nirmatrelvir-ritonav ir (Paxlovid 150 mg-100 mg oral tablet) See instructions 3 Tablets twice daily for 5 days Unchanged tamsulosin (tamsulosin 0.4 mg Cap) 1 Capsules By Mouth Every day Unchanged trazodone (traZODONE 100 mg Tab) 1 Tablets By Mouth 3 times a day Allergies No Known Medication Allergies Problems Ongoing - Any problem that you are currently receiving treatment for. Colon cancer screening COPD with chronic bronchitis COVID-19 Prostate cancer screening Screening for hyperlipidemia Wellness examination Patient Survey You may receive a survey via text or e-mail asking about your office visit. Please share your experience with us by completing your survey. We appreciate your feedback and thank you for choosing us for your care. Normal [facility] Family Medicine Office/Clini c Noteon 08-09-2024 Family Medicine Office/Clinic Note Family Medicine Office/Clinic Note [facility] Staff Tez is a 69 year old male presenting with f/u bronchial infection, still having drainage, and breathing issues was seen in [facility] on 07/31 When all his meds ran out from urgent care all sx came back Chest Xray done @ [facility] 07/31/24 Needs refills on Tamsulosin Still congested the last 3 days woke up with drainage and coughing He said he needs an order for a colonoscopy @ [facility] History of Present Illness pt presents today for continued congestion, cough shortness of breath Review of Systems PHQ Score Initial Depression Screen Score: 0 SCORE Physical Exam Vitals & Measurements T: 36.4 ?C(Temporal Artery) HR: 78(Peripheral) RR: 18 BP: 128/86 SpO2: 96% HT: 72 in HT: 183.5 cm WT: 72.60 kg WT: 159.72 lb BMI: 21.56 General: alert, no acute distress ENMT: oral mucosa moist, no pharyngeal erythema or exudate Cardiovascular: regular rate and rhythm, normal peripheral perfusion Respiratory: Lungs CTA, respirations non labored Extremities: no deformity, no trauma Neurological: oriented x 4, LOC appropriate for age, CN II-XII intact, motor strength equal & normal bilaterally, speech normal Assessment/Plan 1. COPD with chronic bronchitis (J44.89: Other specified chronic obstructive pulmonary disease) pt was covid positive a couple weeks ago, then was seen at and chest x ray was order. no pneumonia but did show COPD. pt has never been told he had COPD. pt had PFT about 2 years ago. but has had covid 3 times since then. will order synbicort, z alex and kenalog given in office today. will return in 2-3 weeks to follow up on breathing. if no improvement will refer to pulmonology. Ordered: azithromycin, = 1 packet(s), Oral, As Directed, as directed on package labeling, X 5 day(s), # 6 tab(s), Refills(s) 0, Pharmacy: [facility]/pharmacy #[id number], 183.5, cm, 08/09/24 8:20:00 EDT, Height/Length Dosing, 72.6, kg, 08/09/24 8:20:00 EDT, Weight Dosing budesonide-formotero l, 2 puff(s), Inhalation, BID, 10.2 gm, Refill(s) 3, [facility]/pharmacy #[id number], 183.5, cm, 08/09/24 8:20:00 EDT, Height/Length Dosing, 72.6, kg, 08/09/24 8:20:00 EDT, Weight Dosing 2. Colon cancer screening (Z12.11: Encounter for screening for malignant neoplasm of colon) requesting to have it done at [facility] Ordered: azithromycin, = 1 packet(s), Oral, As Directed, as directed on package labeling, X 5 day(s), # 6 tab(s), Refills(s) 0, Pharmacy: [facility]/pharmacy #[id number], 183.5, cm, 08/09/24 8:20:00 EDT, Height/Length Dosing, 72.6, kg, 08/09/24 8:20:00 EDT, Weight Dosing budesonide-formotero l, 2 puff(s), Inhalation, BID, 10.2 gm, Refill(s) 3, [facility]/pharmacy #[id number], 183.5, cm, 08/09/24 8:20:00 EDT, Height/Length Dosing, 72.6, kg, 08/09/24 8:20:00 EDT, Weight Dosing [facility] Internal Ambulatory Referral 3. Weight loss (R63.4: Abnormal weight loss) pt is concerned about unexplained weight loss. will obtain recent labs from [facility]. at next visit may check TSH and HGBA1C. discussed it could just be from being sick so much recently. but he feels he eats a lot. 4. Former smoker (Z87.891: Personal history of nicotine dependence) continue not smoking Ordered: azithromycin, = 1 packet(s), Oral, As Directed, as directed on package labeling, X 5 day(s), # 6 tab(s), Refills(s) 0, Pharmacy: [facility]/pharmacy #[id number], 183.5, cm, 08/09/24 8:20:00 EDT, Height/Length Dosing, 72.6, kg, 08/09/24 8:20:00 EDT, Weight Dosing budesonide-formotero l, 2 puff(s), Inhalation, BID, 10.2 gm, Refill(s) 3, [facility]/pharmacy #[id number], 183.5, cm, 08/09/24 8:20:00 EDT, Height/Length Dosing, 72.6, kg, 08/09/24 8:20:00 EDT, Weight Dosing [facility] Internal Ambulatory Referral 5. BMI 21.0-21.9, adult (Z68.21: Body mass index [BMI] 21.0-21.9, adult) BMI education given Ordered: azithromycin, = 1 packet(s), Oral, As Directed, as directed on package labeling, X 5 day(s), # 6 tab(s), Refills(s) 0, Pharmacy: [facility]/pharmacy #[id number], 183.5, cm, 08/09/24 8:20:00 EDT, Height/Length Dosing, 72.6, kg, 08/09/24 8:20:00 EDT, Weight Dosing budesonide-formotero l, 2 puff(s), Inhalation, BID, 10.2 gm, Refill(s) 3, [facility]/pharmacy #[id number], 183.5, cm, 08/09/24 8:20:00 EDT, Height/Length Dosing, 72.6, kg, 08/09/24 8:20:00 EDT, Weight Dosing [facility] Internal Ambulatory Referral Orders: tamsulosin, 0.4 mg = 1 cap(s), Oral, Daily, # 90 cap(s), Refills(s) 3, Pharmacy: [id number], 183.5, cm, 09/16/23 9:38:00 EST, Height/Length Dosing, 71.9, kg, 09/16/23 9:38:00 EST, Weight Dosing tamsulosin, 0.4 mg = 1 cap(s), Oral, Daily, # 90 cap(s), Refills(s) 3, [id number], 183.5, cm, 08/09/24 8:20:00 EDT, Height/Length Dosing, 72.6, kg, 08/09/24 8:20:00 EDT, Weight Dosing Follow-up No qualifying data available Problem List/Past Medical History Ongoing Colon cancer screening COPD with chronic bronchitis COVID-19 Prostate cancer screening Screening for hyperlipidemia Weight loss Wellness examination Historical No qualifying data Procedure/Surgical History Colonoscopy, Surgery, Surgery, Tonsillectomy w (more content not included)... Normal [facility] Comment on above: Result Comment: Elec tronically Signed By: Rebekah Grace\.br\Date and Time Signed: 08/09/24 08:52 EDT XR chest 2V*on 07-31-2024 XR chest 2V* [facility] Main [facility] [address] [place] [address] XRay Report Signed Patient: Tez Mejia MR#: [id number] : 1955 Acct:[id number] Age/Sex: 69 / M ADM Date: 07/31/24 Loc: XDUCLY Room: Type: [facility] Attending Dr: Cheryl Edmond APRN Copies to: Cheryl Edmond APRN Ordering Provider: Cheryl Edmond APRN Date of Service: 07/31/24 XR/XR chest 2V*: r/o pneumonia Chest 2 views CLINICAL HISTORY: Chest congestion shortness of breath weakness productive cough with yellow phlegm for one week COMPARISON: None FINDINGS: Heart normal in size. COPD changes. No consolidation pneumothorax pleural effusion or free air. XR/XR chest 2V* IMPRESSION: COPD CHANGES. NO CONSOLIDATION TO SUGGEST PNEUMONIA. Impression dictated by: Allan Mccallum Jr., Sarah07/31/2024 9:54 AM Dictation Location: [place] [address] Transcribed By: [facility] 07/31/2454 Dictated By: Allan Mccallum Jr, DO 07/31/2453 Signed By: 07/31/24953 Normal [facility] Ambulatory Visit Summaryon 0 07-27-2024 Ambulatory Visit Summary Ambulatory Visit Summary TEZ MEJIA :1955 Visit Date:07/27/2024 Ambulatory Visit Instructions Your Diagnosis COVID-19 Former smoker BMI 22.0-22.9, adult Your Care Team Attending Physician - Rebekah Grace Primary Care Physician - Rebekah Grace This Is Your Medications List nirmatrelvir-ritonav ir (Paxlovid 150 mg-100 mg oral tablet) tamsulosin (tamsulosin 0.4 mg Cap) trazodone (traZODONE 100 mg Tab) Procedures Performed Colonoscopy, Surgery, Surgery, Tonsillectomy with adenoidectomy. Discharge Vitals Temperature (Temporal Artery) 36.1 ?C Heart Rate (Peripheral) 78 Respiratory Rate 20 Blood Pressure 122/78 Height 183.5 cm Height 72 in Weight 74.2 kg Weight 163.24 lb BMI 22.04 Medications What How Much When Instructions Unchanged nirmatrelvir-ritonav ir (Paxlovid 150 mg-100 mg oral tablet) See instructions 3 Tablets twice daily for [address] [facility]/pharmacy #[id number] Unchanged tamsulosin (tamsulosin 0.4 mg Cap) 1 Capsules By Mouth Every day Unchanged trazodone (traZODONE 100 mg Tab) 1 Tablets By Mouth 3 times a day Pharmacy Information [facility]/pharmacy #[id number]: [address], [place] [phone] Allergies No Known Medication Allergies Problems Ongoing - Any problem that you are currently receiving treatment for. COVID-19 Prostate cancer screening Screening for hyperlipidemia Wellness examination Patient Survey You may receive a survey via text or e-mail asking about your office visit. Please share your experience with us by completing your survey. We appreciate your feedback and thank you for choosing us for your care. Ella Kimble [facility] Family Medicine Office/Clini c David 07-27-2024 Family Medicine Office/Clinic Note Family Medicine Office/Clinic Note HPI Staff Tez is a 69 year old male presenting with C/O: Started Thursday night Duration: _ Body aches: no Chills: no Fatigue: yes Cough: yes Sore throat: yes Fever: yes last night Headache: yes Nasal congestion: yes Loss of taste: yes Loss of smell: yes Eye itching/watering: no Sneezing: yes SOB: yes Known Exposure: no not that he knows of COVID test today- NEGATIVE Tried Advil- -did seem to help History of Present Illness pt presents today with URI symptoms, very, chills Review of Systems PHQ Score Initial Depression Screen Score: 0 SCORE Physical Exam Vitals & Measurements T: 36.1 ?C(Temporal Artery) HR: 78(Peripheral) RR: 20 BP: 122/78 SpO2: 96% HT: 72 in HT: 183.5 cm WT: 74.2 kg WT: 163.24 lb BMI: 22.04 General: alert, no acute distress ENMT: oral mucosa moist, no pharyngeal erythema or exudate Cardiovascular: regular rate and rhythm, normal peripheral perfusion Respiratory: Lungs CTA, respirations non labored Extremities: no deformity, no trauma Neurological: oriented x 4, LOC appropriate for age, CN II-XII intact, motor strength equal & normal bilaterally, speech normal Assessment/Plan 1. COVID-19 (U07.1: COVID-19) pt has had covid 19 4 times. feels the same as he did last 2 times. loss of taste and smell. had a couple paxlovid left over from last time and states he felt better after taking them. will send new rx. kenalog given in office for SOB and cough Ordered: triamcinolone, 40 mg = 1 mL, Injection, IntraARTICULAR, Once, Stop date 07/27/24 13:20:00 EDT, Routine, Start date 07/27/24 13:20:00 EDT, 07/27/24 13:20:00 EDT 2. Former smoker (Z87.891: Personal history of nicotine dependence) continue not smoking Ordered: triamcinolone, 40 mg = 1 mL, Injection, IntraARTICULAR, Once, Stop date 07/27/24 13:20:00 EDT, Routine, Start date 07/27/24 13:20:00 EDT, 07/27/24 13:20:00 EDT 3. BMI 22.0-22.9, adult (Z68.22: Body mass index [BMI] 22.0-22.9, adult) BMI education Ordered: triamcinolone, 40 mg = 1 mL, Injection, IntraARTICULAR, Once, Stop date 07/27/24 13:20:00 EDT, Routine, Start date 07/27/24 13:20:00 EDT, 07/27/24 13:20:00 EDT Orders: nirmatrelvir-ritonav ir, See Instructions, Oral, BID, 30 tab(s), Refill(s) 0, 3 Tablets twice daily for 5 days, [facility]/pharmacy #[id number], 183.5, cm, 07/27/24 13:05:00 EDT, Height/Length Dosing, 74.2, kg, 07/27/24 13:05:00 EDT, Weight Dosing Follow-up No qualifying data available Problem List/Past Medical History Ongoing COVID-19 Prostate cancer screening Screening for hyperlipidemia Wellness examination Historical No qualifying data Procedure/Surgical History Colonoscopy, Surgery, Surgery, Tonsillectomy with adenoidectomy. Medications Paxlovid 150 mg-100 mg oral tablet, See Instructions, Oral, BID tamsulosin 0.4 mg Cap, 0.4 mg= 1 cap(s), Oral, Daily, 3 refills traZODONE 100 mg Tab, 100 mg= 1 tab(s), Oral, TID, 3 refills Allergies No Known Medication Allergies Social History Tobacco Former smoker, quit more than 30 days ago, quit in 2022 Tobacco Use:. Cigarettes, Stopped age 68 Years. Ready to change: No. Household tobacco concerns: No. Yes, 07/27/2024 Immunizations Vaccine Date Status Comments SARS-CoV-2 (COVID-19) mRNA BNT-162b2 vax 12/18/2021 Recorded SARS-CoV-2 (COVID-19) mRNA BNT-162b2 vax 04/17/2021 Recorded 2023-09-14: TPV65 SARS-CoV-2 (COVID-19) mRNA BNT-162b2 vax 03/27/2021 Recorded 2023-09-14: TPV65 zoster vaccine, inactivated 02/25/2021 Recorded pneumococcal 23-valent vaccine 02/25/2021 Recorded zoster vaccine, inactivated 09/19/2020 Recorded influenza virus vaccine, inactivated 09/19/2020 Recorded pneumococcal 13-valent vaccine 07/17/2017 Recorded influenza virus vaccine, inactivated 08/08/[address] [facility] Comment on above: Result Comment: Elec tronically Signed By: Rebekah Grace\.br\Date and Time Signed: 07/27/24 14:55 EDT Consultation Noteon 01-26-20 24 Consultation Note [id number] #1.00TIFF [facility] Physician Referralon 024 Physician Referral [id number]#1.00TIFF [facility] Ambulatory Visit Summaryon 1 11-16-2022 Ambulatory Visit Summary TEZ MEJIA :1955 Visit Date:09/16/2023 Ambulatory Visit Instructions Your Diagnosis Wellness examination Prostate cancer screening Screening for hyperlipidemia BMI 21.0-21.9, adult Smoker Your Care Team Attending Physician - Rebekah Grace Primary Care Physician - Rebekah Grace This Is Your Medications List ibuprofen (ibuprofen 800 mg Tab) tamsulosin (tamsulosin 0.4 mg Cap) trazodone (traZODONE 100 mg Tab) [Image Removed: STOP]Stop taking these medications baclofen (baclofen 10 mg Tab) Procedures Performed Colonoscopy, Surgery, Surgery, Tonsillectomy with adenoidectomy. Discharge Vitals Heart Rate (Peripheral) 70 Respiratory Rate 18 Blood Pressure 116/72 Height 183.5 cm Height 72 in Weight 71.90 kg Weight 158.18 lb BMI 21.35 Medications What How Much When Instructions Changed tamsulosin (tamsulosin 0.4 mg Cap) 1 Capsules By Mouth Every day Pickup at [facility] Changed trazodone (traZODONE 100 mg Tab) 1 Tablets By Mouth 3 times a day Pickup at [facility]/pharmacy #6177 Unchanged ibuprofen (ibuprofen 800 mg Tab) 1 Tablets By Mouth Every 6 hours as needed for Pain 1-3 Pharmacy Information [facility]: [address] [place] [phone] [facility]/pharmacy #[id number]: [address], [place] [phone] What How Much When Comments Stop Taking baclofen (baclofen 10 mg Tab) 1 Tablets By Mouth Once a day (at bedtime) Allergies No Known Medication Allergies Problems Ongoing - Any problem that you are currently receiving treatment for. Prostate cancer screening Screening for hyperlipidemia Wellness examination Patient Survey You may receive a survey via text or e-mail asking about your office visit. Please share your experience with us by completing your survey. We appreciate your feedback and thank you for choosing us for your care. [facility] Ambulatory Visit Summary TEZ MEJIA :1955 Visit Date:09/16/2023 Ambulatory Visit Instructions Your Diagnosis Wellness examination Prostate cancer screening Screening for hyperlipidemia BMI 21.0-21.9, adult Smoker Your Care Team Attending Physician - Rebekah Grace Primary Care Physician - Rebekah Grace This Is Your Medications List ibuprofen (ibuprofen 800 mg Tab) tamsulosin (tamsulosin 0.4 mg Cap) trazodone (traZODONE 100 mg Tab) [Image Removed: STOP]Stop taking these medications baclofen (baclofen 10 mg Tab) Procedures Performed Colonoscopy, Surgery, Surgery, Tonsillectomy with adenoidectomy. Discharge Vitals Heart Rate (Peripheral) 70 Respiratory Rate 18 Blood Pressure 116/72 Height 183.5 cm Height 72 in Weight 71.90 kg Weight 158.18 lb BMI 21.35 Medications What How Much When Instructions Changed tamsulosin (tamsulosin 0.4 mg Cap) 1 Capsules By Mouth Every day Pickup at [facility] Changed trazodone (traZODONE 100 mg Tab) 1 Tablets By Mouth 3 times a day Pickup at [facility]/pharmacy #6177 Unchanged ibuprofen (ibuprofen 800 mg Tab) 1 Tablets By Mouth Every 6 hours as needed for Pain 1-3 Pharmacy Information [facility] #142: [address] [place] [id number] [phone] [facility]/pharmacy #6177: [address], [place] [phone] What How Much When Comments Stop Taking baclofen (baclofen 10 mg Tab) 1 Tablets By Mouth Once a day (at bedtime) Allergies No Known Medication Allergies Problems Ongoing - Any problem that you are currently receiving treatment for. Prostate cancer screening Screening for hyperlipidemia Wellness examination Patient Survey You may receive a survey via text or e-mail asking about your office visit. Please share your experience with us by completing your survey. We appreciate your feedback and thank you for choosing us for your care. [facility] Ambulatory Visit Summary TEZ MEJIA :1955 Visit Date:09/16/2023 Ambulatory Visit Instructions Your Diagnosis Wellness examination Prostate cancer screening Screening for hyperlipidemia BMI 21.0-21.9, adult Smoker Your Care Team Attending Physician - Rebekah Grace Primary Care Physician - Rebekah Grace This Is Your Medications List ibuprofen (ibuprofen 800 mg Tab) tamsulosin (tamsulosin 0.4 mg Cap) trazodone (traZODONE 100 mg Tab) [Image Removed: STOP]Stop taking these medications baclofen (baclofen 10 mg Tab) Procedures Performed Colonoscopy, Surgery, Surgery, Tonsillectomy with adenoidectomy. Discharge Vitals Heart Rate (Peripheral) 70 Respiratory Rate 18 Blood Pressure 116/72 Height 183.5 cm Height 72 in Weight 71.90 kg Weight 158.18 lb BMI 21.35 Medications What How Much When Instructions Changed tamsulosin (tamsulosin 0.4 mg Cap) 1 Capsules By Mouth Every day Pickup at [facility] Changed trazodone (traZODONE 100 mg Tab) 1 Tablets By Mouth 3 times a day Pickup at [facility]/pharmacy #6156 Unchanged ibuprofen (ibuprofen 800 mg Tab) 1 Tablets By Mouth Every 6 hours as needed for Pain 1-3 Pharmacy Information [facility] #142: [address] [place] [phone] [facility]/pharmacy #6177: [address], [place] [phone] What How Much When Comments Stop Taking baclofen (baclofen 10 mg Tab) 1 Tablets By Mouth Once a day (at bedtime) Allergies No Known Medication Allergies Problems Ongoing - Any problem that you are currently receiving treatment for. Prostate cancer screening Screening for hyperlipidemia Wellness examination Patient Survey You may receive a survey via text or e-mail asking about your office visit. Please share your experience with us by completing your survey. We appreciate your feedback and thank you for choosing us for your care. Normal [facility] Auto Diffon 09-16-2023 Basophils/100 WBC (Bld) 0.9 % Normal 0.0-2.0 [facility] Comment on above: Order Comment: Order Added by Discern Expert. Performed By: #### 2 913068, 3686200, 53785859, 4964992, 1970107, 4172526, 36145502 ####[facility] [address] [place] [address] Basophils/Leukocytes Auto (Bld) [Pure # fraction] 0.1 E9/L Normal 0.0-0.2 [facility] Comment on above: Order Comment: Order Added by Discern Expert. Performed By: #### 2 667308, 3866488, 32080208, 1144244, 3271494, 9076784, 36461895 ####[facility] [address] [place] [address] Eosinophils/100 WBC (Bld) 0.7 % Normal 0.0-8.0 [facility] Comment on above: Order Comment: Order Added by Discern Expert. Performed By: #### 2 163023, 6830531, 55832434, 3006608, 4479955, 4952135, 97288731 ####[facility] [address] [place] [address] Eosinophils/Leukocyte s Auto (Bld) [Pure # fraction] 0.1 E9/L Normal 0.0-0.5 [facility] Comment on above: Order Comment: Order Added by Discern Expert. Performed By: #### 2 356665, 1235167, 29445029, 3433467, 9072956, 0058711, 84612418 ####[address] [place] [address] Lymphocytes/100 WBC (Bld) 18.0 % Normal 14.0-50.0 [facility] Comment on above: Order Comment: Order Added by Discern Expert. Performed By: #### 2 473037, 4842751, 58397910, 6425221, 8118006, 2222221, 87828403 ####[address] [place] [address] Lymphocytes/Leukocyte s Auto (Bld) [Pure # fraction] 1.5 E9/L Normal 1.0-4.0 [facility] Comment on above: Order Comment: Order Added by Discern Expert. Performed By: #### 2 629778, 8335154, 97441651, 6687756, 9158484, 3941130, 08890862 ####[address] [address] Monocytes/100 WBC (Bld) 7.2 % Normal 4.0-14.0 [facility] Comment on above: Order Comment: Order Added by Discern Expert. Performed By: #### 2 660616, 9793920, 88020428, 7705057, 1216952, 2860028, 35004517 ####[address] [address] Monocytes/Leukocytes Auto (Bld) [Pure # fraction] 0.6 E9/L Normal 0.2-1.0 [facility] Comment on above: Order Comment: Order Added by Discern Expert. Performed By: #### 2 719076, 5028433, 96157552, 5303199, 4178011, 3758363, 66045698 ####[address] [place] [address] Neutrophils/100 WBC (Bld) 73.2 % Normal 36.0-75.0 [facility] Comment on above: Order Comment: Order Added by Discern Expert. Performed By: #### 2 068580, 9759873, 06521647, 7555101, 7369166, 8716414, 24518478 ####[address] [place] [address] Neutrophils/Leukocyte s Auto (Bld) [Pure # fraction] 6.0 E9/L Normal 2.0-7.5 [facility] Comment on above: Order Comment: Order Added by Discern Expert. Performed By: #### 2 277544, 6152000, 15004335, 6194785, 3435930, 0300287, 85778602 ####[address] [place] [address] CBC w/ Auto Diffon 3 Erythrocyte distribution width (RBC) [Ratio] 13.8 % Normal 10.9-14.2 [facility] Comment on above: Performed By: #### 2 706603, 0358790, 61733958, 6374935, 6461488, 0080580, 76563858 ####[address] [place] [address] Hematocrit (Bld) [Volume fraction] 42.5 % Normal 37.7-49.0 [facility] Comment on above: Performed By: #### 2 961224, 9866123, 07477324, 5222947, 9517883, 0842099, 71596642 ####[address] [place] [address] Hemoglobin (Bld) [Mass/Vol] 14.1 g/dL Normal 13.5-17.5 [facility] Comment on above: Performed By: #### 2 168452, 2823805, 98381162, 6847598, 3880722, 9919918, 20993310 ####[address] [place] [address] MCH (RBC) [Entitic mass] 28.7 pg Normal 27.0-34.0 [facility] Comment on above: Performed By: #### 2 355254, 1073254, 85732421, 1995974, 3604414, 5195296, 32004875 ####[facility] [address] [place] [address] MCHC (RBC) [Mass/Vol] 33.2 g/dL Normal 31.4-36.0 [facility] Comment on above: Performed By: #### 2 654574, 2350069, 42772481, 2657418, 9893274, 2787132, 92351609 ####[facility] [address] [place] [address] MCV (RBC) [Entitic vol] 86.3 fL Normal 80.0-100.0 [facility] Comment on above: Performed By: #### 2 326769, 5789633, 66986480, 7759657, 2448806, 4120903, 03432552 ####[address] [place] [address] Platelet mean volume (Bld) [Entitic vol] 8.4 fL Normal 6.4-10.8 [facility] Comment on above: Performed By: #### 2 337261, 3301015, 33708949, 4405129, 2207390, 5344143, 55837427 ####[facility] [address] [place] [address] Platelets (Bld) [#/Vol] 359.0 E9/L Normal 150.0-500.0 [facility] Comment on above: Performed By: #### 2 767991, 3495589, 49702738, 8441403, 3263907, 4735866, 58797906 ####[facility] [address] [place] [address] RBC (Bld) [#/Vol] 4.9 E12/L Normal 4.3-5.9 [facility] Comment on above: Performed By: #### 2 574525, 5732188, 03543961, 4829768, 7311283, 6505513, 26822256 ####[address] [place] [address] WBC corrected for nucl RBC Auto (Bld) [#/Vol] 8.2 E9/L Normal 4.0-11.0 [facility] Comment on above: Performed By: #### 2 921862, 1548554, 13355095, 8445194, 0313292, 6012669, 76366911 ####[facility] [address] [place] [address] CHEMISTRYOrdered By: SYSTEM SYSTEM on 09-16-2023 Albumin [Mass/Vol] 3.9 g/dL Normal 3.3 - 5.0 gm/dL [facility] Albumin/Globulin [Mass ratio] 1.4 {ratio} Normal 1.1 - 2.2 [facility] ALP [Catalytic activity/Vol] 78 [iU]/d Normal 21 - 98 Int._Unit/L [facility] ALT No additional P-5'-P [Catalytic activity/Vol] 26 [iU]/d Normal 6 - 46 Int._Unit/L [facility] Anion gap [Moles/Vol] 11 mmol/L Normal 6 - 16 mEq/L F [facility] AST [Catalytic activity/Vol] 30 [iU]/d Normal 5 - 43 Int._Unit/L [facility] Bilirubin [Mass/Vol] 0.7 mg/dL Normal 0.0 - 1 .1 mg/dL [facility] Calcium [Mass/Vol] 9.6 mg/dL Normal 8.9 - 11. 1 mg/dL [facility] Chloride [Moles/Vol] 107 mmol/L Normal 101 - 1 11 mmol/L [facility] Cholesterol [Mass/Vol] 203 mg/dL High 120 - 200 mg/dL [facility] Cholesterol in HDL [Mass/Vol] 78 mg/dL Invalid Interpretation Code [facility] Comment on above: Interpretive Data: H DL > or equal to 60 mg/dL: Low cardiovascular risk HDL < 40 mg/dL : High cardiovascular risk Cholesterol in LDL [Mass/Vol] 114 mg/dL Normal <=129mg/dL [facility] Cholesterol in VLDL [Mass/Vol] 17 mg/dL Normal 7 - 40 mg/dL [facility] CO2 [Moles/Vol] 26 mmol/L Normal 21 - 31 mmol/L [facility] Creatinine [Mass/Vol] 1.0 mg/dL Normal 0.5 - 1.3 mg/dL [facility] GFR/1.73 sq M.predicted among non-blacks MDRD (S/P/Bld) [Vol rate/Area] 82 mL/min/1.73 m2 Normal >=59mL/min/1 .73 m2 [facility] Comment on above: Interpretive Data: C hronic kidney disease could be indicated at eGFR's of less than 60 mL/min/1.73m2. Kidney failure is indicated at less than 15 mL/min/1.73m2. Globulin (S) [Mass/Vol] 2.7 g/dL Normal 1.4 - 4.0 gm/dL [facility] Glucose [Mass/Vol] 100 mg/dL Normal 55 - 199 mg/dL [facility] Comment on above: Interpretive Data: I f this glucose result represents a fasting glucose, interpretation should refer to the following reference range: 55-99 mg/dL Potassium [Moles/Vol] 4.2 mmol/L Normal 3.5 - 5.3 mmol/L [facility] Prostate specific Ag [Mass/Vol] 1.8 ng/mL Normal 0.1 - 3.5 ng/mL [facility] Comment on above: Interpretive Data: T he concentration of PSA determined by different manufacturers can vary due to differences in assay methods and reagent specificity. Values obtained from different assay methods cannot be used interchangeably. The methodology used for this result was chemiluminescence using [employer] PSA reagent. Protein [Mass/Vol] 6.6 g/dL Normal 6.0 - 7.8 gm/dL [facility] Sodium [Moles/Vol] 140 mmol/L Normal 135 - 145 mmol/L [facility] Triglyceride [Mass/Vol] 85 mg/dL Normal <=149mg/dL [facility] TSH Qn 2.03 m[IU]/L Normal 0.34 - 5.60 mcIU/mL [facility] Urea nitrogen [Mass/Vol] 19 mg/dL Normal 5 - 21 mg/dL [facility] Urea nitrogen/Creatinine [Mass ratio] 19 mg/mg Normal 10 - 20 [facility] CMPon 09-16-2023 Albumin [Mass/Vol] 3.9 g/dL Normal 3.3-5.0 [facility] Comment on above: Performed By: #### 2 920843, 6451113, 20209551, 7261401, 5967223, 4221911, 85373980 ####[facility] [address] [place] [address] Albumin/Globulin (S) [Mass conc ratio] 1.4 Normal 1.1-2.2 [facility] Comment on above: Performed By: #### 2 294240, 2622224, 25145613, 4108097, 2552210, 1506095, 38593111 ####[facility] [address] [place] [address] ALP [Catalytic activity/Vol] 78 Int._Unit/L Normal 21-98 [facility] Comment on above: Performed By: #### 2 780472, 6985531, 69972325, 8206497, 6003338, 7627685, 77649521 ####[facility] [address] [place] [address] ALT No additional P-5'-P [Catalytic activity/Vol] 26 Int._Unit/L Normal 6-46 [facility] Comment on above: Performed By: #### 2 592100, 8481283, 21118679, 3117425, 0433595, 9048000, 22504613 ####[facility] [address] [place] [address] Anion gap [Moles/Vol] 11 mmol/L Normal 6-16 [facility] Comment on above: Performed By: #### 2 786985, 0427654, 89390546, 3830316, 2317365, 6353269, 31930754 ####[facility] [address] [place] [address] AST [Catalytic activity/Vol] 30 Int._Unit/L Normal 5-43 [facility] Comment on above: Performed By: #### 2 996260, 5464455, 25459594, 3634075, 7021495, 6965485, 57177627 ####[facility] [address] [place] [address] Bilirubin [Mass/Vol] 0.7 mg/dL Normal 0.0-1.1 [facility] Comment on above: Performed By: #### 2 781326, 1515718, 38160828, 7668973, 2439017, 4228758, 23481517 ####[facility] [address] [place] [address] Calcium [Mass/Vol] 9.6 mg/dL Normal 8.9-11.1 [facility] Comment on above: Performed By: #### 2 832769, 1557705, 25104050, 1554768, 4258502, 1223703, 82460360 ####[facility] [address] [place] [address] Chloride [Moles/Vol] 107 mmol/L Normal 101-111 [facility] Comment on above: Performed By: #### 2 516839, 0931140, 03032311, 3705005, 4678429, 3425682, 32577523 ####[facility] [address] [place] [address] CO2 [Moles/Vol] 26 mmol/L Normal 21-31 [facility] Comment on above: Performed By: #### 2 962831, 4566299, 99086812, 2320490, 4357174, 0111924, 55368543 ####[facility] [address] [place] [address] Creatinine [Mass/Vol] 1.0 mg/dL Normal 0.5-1.3 [facility] Comment on above: Performed By: #### 2 573234, 8272086, 92854943, 9651596, 3071919, 5147878, 59153063 ####[facility] [address] [place] [address] Globulin (S) [Mass/Vol] 2.7 g/dL Normal 1.4-4.0 [facility] Comment on above: Performed By: #### 2 052662, 5645241, 77899092, 2250036, 0282459, 4055720, 98452629 ####[facility] [address] [place] [address] Glucose [Mass/Vol] 100 mg/dL Normal 55-199 [facility] Comment on above: Result Comment: If t his glucose result represents a fasting glucose, interpretation should refer to the following reference range: 55-99 mg/dL Performed By: #### 2 265460, 8913085, 66190418, 4671806, 1905896, 7118658, 87423406 ####[facility] [address] [place] [address] Potassium [Moles/Vol] 4.2 mmol/L Normal 3.5-5.3 [facility] Comment on above: Performed By: #### 2 914402, 1614677, 33534086, 7744398, 7472224, 3026566, 15517326 ####[facility] [address] [place] [address] Protein [Mass/Vol] 6.6 g/dL Normal 6.0-7.8 [facility] Comment on above: Performed By: #### 2 612229, 3040261, 69618553, 6312320, 8079007, 7676493, 12089145 ####[facility] [address] [place] [address] Sodium [Moles/Vol] 140 mmol/L Normal 135-145 [facility] Comment on above: Performed By: #### 2 095548, 8439599, 48958398, 8503478, 9276440, 7493797, 22827271 ####[facility] [address] [place] [address] Urea nitrogen [Mass/Vol] 19 mg/dL Normal 5-21 [facility] Comment on above: Performed By: #### 2 284925, 0748797, 49540636, 6101049, 4659526, 2445757, 40189079 ####[facility] [address] [place] [address] Urea nitrogen/Creatinine [Mass ratio] 19 No Units Normal 10-20 [facility] Comment on above: Performed By: #### 2 089431, 0133512, 20418522, 3795731, 8565751, 2035318, 73252150 ####[facility] [address] [place] [address] Family Medicine Office/Clini c Noteon 09-16-2023 Family Medicine Office/Clinic Note HPI Staff Tez is a 68 year old male presenting to establish care Establish Care: History: Any previous diagnosis: HLD, prostate disorder, migraines, Lumbar radiculopathy, sciatica, muscle spasm History of seeing any specialist: When was your last doctors visit: Last provider: Dr Cormier Any recent labs: 2020 Health Maintenance UTD: Colonoscopy: 2016, pt was due for repeat 2021 PSA: Acute: Current issues/complaints: [facility] Left side of nose: 15 years small skin lesion within the last few months will break open and then scab over. Pt like referral to Derm History of Present Illness pt presents today for wellness exam/establish care Review of Systems ROS - Provider Constitutional: no fever, no chills, no sweats, no fatigue Respiratory: no shortness of breath, no cough, no orthopnea, no wheezing. Cardiovascular: no chest pain, no palpitations, no edema. Neurologic: no headache, no dizziness, no numbness, no weakness. Physical Exam Vitals & Measurements HR: 70(Peripheral) RR: 18 BP: 116/72 SpO2: 97% HT: 72 in HT: 183.5 cm WT: 71.90 kg WT: 158.18 lb BMI: 21.35 General: alert, no acute distress ENMT: oral mucosa moist, no pharyngeal erythema or exudate Cardiovascular: regular rate and rhythm, normal peripheral perfusion Respiratory: Lungs CTA, respirations non labored Extremities: no deformity, no trauma Neurological: oriented x 4, LOC appropriate for age, CN II-XII intact, motor strength equal & normal bilaterally, speech normal Assessment/Plan 1. Wellness examination (Z00.00: Encounter for general adult medical examination without abnormal findings) pt presents today for wellness exam. pt has not had labs in over 2 years. will draw labs today. pt denies needs. needs a couple refills on meds. all questions answered. RTC as needed Ordered: CBC w/ Auto Diff Comprehensive Metabolic Panel Lipid Panel PSA Screen, Total Thyroid Stimulating Hormone 2. Prostate cancer screening (Z12.5: Encounter for screening for malignant neoplasm of prostate) PSA drawn in office today Ordered: CBC w/ Auto Diff Comprehensive Metabolic Panel Lipid Panel PSA Screen, Total Thyroid Stimulating Hormone 3. Screening for hyperlipidemia (Z13.220: Encounter for screening for lipoid disorders) labs drawn in office today Ordered: CBC w/ Auto Diff Comprehensive Metabolic Panel Lipid Panel PSA Screen, Total Thyroid Stimulating Hormone 4. BMI 21.0-21.9, adult (Z68.21: Body mass index [BMI] 21.0-21.9, adult) BMIU education complete Ordered: CBC w/ Auto Diff Comprehensive Metabolic Panel Lipid Panel PSA Screen, Total Thyroid Stimulating Hormone 5. Smoker (F17.200: Nicotine dependence, unspecified, uncomplicated) consider not smoking Ordered: CBC w/ Auto Diff Comprehensive Metabolic Panel Lipid Panel PSA Screen, Total Thyroid Stimulating Hormone Orders: tamsulosin, 0.4 mg = 1 cap(s), Oral, Daily, # 90 cap(s), Refills(s) 3, Pharmacy: [facility], 183.5, cm, 09/16/23 9:38:00 EST, Height/Length Dosing, 71.9, kg, 09/16/23 9:38:00 EST, Weight Dosing trazodone, 100 mg = 1 tab(s), Oral, TID, # 90 tab(s), Refills(s) 3, Pharmacy: [facility]/pharmacy #[id number], 183.5, cm, 09/16/23 9:38:00 EST, Height/Length Dosing, 71.9, kg, 09/16/23 9:38:00 EST, Weight Dosing varenicline, 1 mg = 1 tab(s), Oral, BID, after meals, # 56 tab(s), Refills(s) 0, Pharmacy: [facility] [id number] Follow-up No qualifying data available Problem List/Past Medical History Ongoing Prostate cancer screening Screening for hyperlipidemia Wellness examination Historical No qualifying data Procedure/Surgical History Colonoscopy, Surgery, Surgery, Tonsillectomy with adenoidectomy. Medications ibuprofen 800 mg Tab, 800 mg= 1 tab(s), Oral, q6hr, PRN tamsulosin 0.4 mg Cap, 0.4 mg= 1 cap(s), Oral, Daily, 3 refills traZODONE 100 mg Tab, 100 mg= 1 tab(s), Oral, TID, 3 refills Allergies No Known Medication Allergies Social History Tobacco 10 or more cigarettes (1/2 pack or more)/day in last 30 days Tobacco Use:. Cigarettes, Ready to change: No. Household tobacco concerns: No. Yes, 09/16/2023 Immunizations Vaccine Date Status Comments SARS-CoV-2 (COVID-19) mRNA BNT-162b2 vax 12/18/2021 Recorded SARS-CoV-2 (COVID-19) mRNA BNT-162b2 vax 04/17/2021 Recorded 2023-09-14: [id number] SARS-CoV-2 (COVID-19) mRNA BNT-162b2 vax 03/27/2021 Recorded 2023-09-14: TPV65 zoster vaccine, inactivated 02/25/2021 Recorded pneumococcal 23-valent vaccine 02/25/2021 Recorded zoster vaccine, inactivated 09/19/2020 Recorded influenza virus vaccine, inactivated 09/19/2020 Recorded pneumococcal 13-valent vaccine 07/17/2017 Recorded influenza virus vaccine, inactivated 08/08/[address] [facility] Comment on above: Result Comment: Elec tronically Signed By: Rebekah Grace\.br\Date and Time Signed: 09/16/23 10:05 EST HEMATOLOGYOrdered By: SYSTEM SYSTEM on 09-16-2023 Basophils/100 WBC (Bld) 0.9 % Normal 0.0 - 2.0 % [facility] Basophils/Leukocytes Auto (Bld) [Pure # fraction] 0.1 E9/L Normal 0.0 - 0.2 E9/L [facility] Eosinophils/100 WBC (Bld) 0.7 % Normal 0.0 - 8.0 % [facility] Eosinophils/Leukocyte s Auto (Bld) [Pure # fraction] 0.1 E9/L Normal 0.0 - 0.5 E9/L [facility] Lymphocytes/100 WBC (Bld) 18.0 % Normal 14.0 - 50.0 % [facility] Lymphocytes/Leukocyte s Auto (Bld) [Pure # fraction] 1.5 E9/L Normal 1.0 - 4.0 E9/L [facility] Monocytes/100 WBC (Bld) 7.2 % Normal 4.0 - 14.0 % [facility] Monocytes/Leukocytes Auto (Bld) [Pure # fraction] 0.6 E9/L Normal 0.2 - 1.0 E9/L [facility] Neutrophils/100 WBC (Bld) 73.2 % Normal 36.0 - 75.0 % [facility] Neutrophils/Leukocyte s Auto (Bld) [Pure # fraction] 6.0 E9/L Normal 2.0 - 7.5 E9/L [facility]eAutoSS HEMATOLOGYOrdered By: Marion Cordova on 09-16-2023 Erythrocyte distribution width (RBC) [Ratio] 13.8 % Normal 10.9 - 14.2 % [facility] Hematocrit (Bld) [Volume fraction] 42.5 % Normal 37.7 - 49.0 % [facility] Hemoglobin (Bld) [Mass/Vol] 14.1 g/dL Normal 13.5 - 17.5 gm/dL [facility] MCH (RBC) [Entitic mass] 28.7 pg Normal 27.0 - 34.0 pg [facility] MCHC (RBC) [Mass/Vol] 33.2 g/dL Normal 31.4 - 36.0 gm/dL [facility] MCV (RBC) [Entitic vol] 86.3 fL Normal 80.0 - 100.0 fL [facility] Platelet mean volume (Bld) [Entitic vol] 8.4 fL Normal 6.4 - 10.8 fL [facility] Platelets (Bld) [#/Vol] 359.0 E9/L Normal 150.0 - 500.0 E9/L [facility] RBC (Bld) [#/Vol] 4.9 E12/L Normal 4.3 - 5.9 E12/L [facility] WBC corrected for nucl RBC Auto (Bld) [#/Vol] 8.2 E9/L Normal 4.0 - 11.0 E9/L [facility] Lipid Panelon 09-16-2023 Cholesterol [Mass/Vol] 203 mg/dL High 120-200 [facility] Comment on above: Performed By: #### 2 314510, 8732286, 79345206, 0811828, 2473694, 7294500, 23912932 ####[facility] [address] [place] [address] Cholesterol in HDL [Mass/Vol] 78 mg/dL Invalid Interpretation Code [facility] Comment on above: Result Comment: HDL > or equal to 60 mg/dL: Low cardiovascular risk HDL < 40 mg/dL : High cardiovascular risk Performed By: #### 2 [id number], [id number], [id number], [id number], [id number], [id number], [id number] ####[facility] [address] [place] [address] Cholesterol in LDL [Mass/Vol] 114 mg/dL Normal <=129 [facility] Comment on above: Performed By: #### 2 [id number], [id number], [id number], 1307747, [id number], [id number], [id number] ####[facility] [address] [place] [address] Cholesterol in VLDL [Mass/Vol] 17 mg/dL Normal 7-40 [facility] Comment on above: Performed By: #### 2 [id number], 3644404, [id number], 0843198, 0771729, [id number], [id number] ####[facility] [address] [place] [address] Triglyceride [Mass/Vol] 85 mg/dL Normal <=149 [facility] Comment on above: Performed By: #### 2 [id number], [id number], [id number], 5468510, 7335900, 9211010, [id number] ####[facility] [address] [place] [address] Nurse Consultation Noteon Nurse Consultation Note Reason for Visit Blood draw Physical Exam Vitals & Measurements HR: 70(Peripheral) RR: 18 BP: 116/72 SpO2: 97% HT: 72 in HT: 183.5 cm WT: 71.90 kg WT: 158.18 lb BMI: 21.35 Assessment/Plan 1. Wellness examination (Z00.00: Encounter for general adult medical examination without abnormal findings) 2. Prostate cancer screening (Z12.5: Encounter for screening for malignant neoplasm of prostate) 3. Screening for hyperlipidemia (Z13.220: Encounter for screening for lipoid disorders) 4. BMI 21.0-21.9, adult (Z68.21: Body mass index [BMI] 21.0-21.9, adult) 5. Smoker (F17.200: Nicotine dependence, unspecified, uncomplicated) Medications ibuprofen 800 mg Tab, 800 mg= 1 tab(s), Oral, q6hr, PRN tamsulosin 0.4 mg Cap, 0.4 mg= 1 cap(s), Oral, Daily, 3 refills traZODONE 100 mg Tab, 100 mg= 1 tab(s), Oral, TID, 3 refills Allergies No Known Medication Allergies Immunizations Vaccine Date Status Comments SARS-CoV-2 (COVID-19) mRNA BNT-162b2 vax 12/18/2021 Recorded SARS-CoV-2 (COVID-19) mRNA BNT-162b2 vax 04/17/2021 Recorded 2023-09-14: [id number] SARS-CoV-2 (COVID-19) mRNA BNT-162b2 vax 03/27/2021 Recorded 2023-09-14: TPV65 zoster vaccine, inactivated 02/25/2021 Recorded pneumococcal 23-valent vaccine 02/25/2021 Recorded zoster vaccine, inactivated 09/19/2020 Recorded influenza virus vaccine, inactivated 09/19/2020 Recorded pneumococcal 13-valent vaccine 07/17/2017 Recorded influenza virus vaccine, inactivated 08/08/[address] [facility] PSA Screen, Totalon 09-16-20 23 Prostate specific Ag [Mass/Vol] 1.8 ng/mL Normal 0.1-3.5 [facility] Comment on above: Result Comment: The concentration of PSA determined by different manufacturers can vary due to differences in assay methods and reagent specificity. Values obtained from different assay methods cannot be used interchangeably. The methodology used for this result was chemiluminescence using [employer]'s iCetana Hybritech PSA reagent. Performed By: #### 2 [id number], [id number], [id number], 5348905, 6305168, [id number], [id number] ####[facility] [address] [place] [address] TSHon 09-16-2023 TSH Qn 2.03 m[IU]/L Normal 0.34-5.60 [facility] Comment on above: Performed By: #### 2 [id number], [id number], [id number], 9578021, 5810783, 2345420, [id number] ####[facility] [address] [place] [address] eGFRon 09-16-2023 GFR/1.73 sq M.predicted among non-blacks MDRD (S/P/Bld) [Vol rate/Area] 82 mL/min/1.73 m2 Normal >=59 [facility] Comment on above: Order Comment: Order added by Discern Expert. Result Comment: Industrial Electrical Engineer bob kidney disease could be indicated at eGFR's of less than 60 mL/min/1.73m2. Kidney failure is indicated at less than 15 mL/min/1.73m2. Performed By: #### 2 [id number], [id number], [id number], 4247625, 2271249, 8503200, [id number] ####[facility] [address] [place] [address] CT LUNG CANCER SCREENINGon 0 12-24-2022 CT LUNG CANCER SCREENING EXAMINATION: CT LUNG CANCER SCREENING HISTORY: Tobacco dependence caused by cigarettes COMPARISON: No relevant comparison available. TECHNIQUE: Axial, Coronal, and Sagittal images were created without the administration of IV contrast material.Dose reduction techniques were achieved by using automated exposure control and/or adjustment of mA and/or kV according to patient size and/or use of iterative reconstruction technique. FINDINGS: LUNGS: Some minimal patchy opacities identified in both lung bases likely atelectasis and/or scar. Mild centrilobular emphysema. A few scattered pulmonary nodules the largest noncalcified nodule measures 4 mm in the right upper lobe axial image #74. PLEURA: No mass, effusion, or pneumothorax. VASCULATURE: No abnormality. ZORAIDA: Small calcified left hilar lymph nodes MEDIASTINUM: No mass or pathologic adenopathy. CARDIAC: No enlargement or pericardial effusion. Minimal coronary atherosclerosis AORTA: No aortic aneurysm. Minimal atherosclerosis CHEST WALL: No mass or axillary adenopathy BONES: No bone lesion or fracture. LIMITED ABDOMEN: No suspicious findings. Limited images of the upper abdomen. OTHER: Negative. IMPRESSION: LUNG SCREENING: Lung-RADS Category 2- Benign Appearance or Behavior. Nodules with a very low likelihood of becoming a clinically active cancer due to size or lack of growth. 2. Continue annual screening with LDCT in 12 months. Electronically authenticated by: NAHUM NGUYEN Date: 2022-12-24 10:22 Normal [facility] SARS-CoV-2 (COVID-19) RNA NA A+probe Ql (Resp)on 07-03-2022 SARS-CoV-2 (COVID-19) RNA ANA+probe Ql (Unsp spec) Negative [facility] Other XR humerus LT*on 04-24-2022 XR humerus LT* [facility] Other XR humerus LT* [facility] [employer] Other XR humerus LT* [address] [facility] [employer] Other XR humerus LT* [place] [address] No rt [employer] Other XR humerus LT* XRay Report [employer] Other XR humerus LT* Signed [employer] Other XR humerus LT* Patient: Tez Mejia MR#: [id number] [facility] Other XR humerus LT* [id number] [employer] Other XR humerus LT* : 1955 Acct:[id number] [facility] Other XR humerus LT* Age/Sex: 67 / M ADM Date: 04/24/22 [facility] Other XR humerus LT* Loc: XDUCLY Room: Type: REG CLI [facility] Other XR humerus LT* Attending Dr: Glenny FABIANCarlos [facility] Other XR humerus LT* Copies to: GLENNY [facility]YD [facility] Other XR humerus LT* Ordering Provider: GLENNY FLOYD [facility] Other XR humerus LT* Date of Service: 04/24/22 [facility] Other XR humerus LT* XR/XR humerus LT*: Injury of left upper arm, initial encounter [facility] Other XR humerus LT* LEFT HUMERUS - 2 views [facility] Other XR humerus LT* CLINICAL HISTORY: Patient injured left lower humerus one day ago for CA window open. Now with [facility] Other XR humerus LT* pain. [employer] Other XR humerus LT* COMPARISON: None [facility] Other XR humerus LT* FINDINGS: No focal soft tissue abnormality. No acute bony process is seen. Visualized left [facility] Other XR humerus LT* shoulder appears intact. Visualized elbow appears intact. [facility] Other XR humerus LT* XR/XR humerus LT* [facility] Other XR humerus LT* IMPRESSION: [employer] Other XR humerus LT* NO ACUTE BONY PROCESS. [facility] Other XR humerus LT* Impression dictated by: Allan Mccallum Jr., D.ODebra04/24/2022 9:55 AM [facility] Other XR humerus LT* Dictation Location: [place] [address] [facility] Other XR humerus LT* Transcribed By: PWS 04/24/22 09 [place] [employer] Other XR humerus LT* Dictated By: Allan Mccallum Jr, DO 04/24/22 09 [place] [employer] Other XR humerus LT* Signed By: [employer] Other XR humerus LT* 04/24/22954 [employer] Other Vital Signs Date Time Vital Sign Value Performing Clinician Facility 07-31-2024 09:20-0400 Body temperature 97.8 [degF] MD Cathleen Cormier Work Phone: [facility] 07-31-2024 09:20-0400 Body weight 71.89 kg MD Cathleen Cormier Work Phone: [facility] 07-31-2024 09:20-0400 Diastolic blood pressure 99 mm[Hg] MD Cathleen Cormier Work Phone: [facility] 07-31-2024 09:20-0400 Heart rate 67 /min MD Cathleen Cormier Work Phone: [facility] 07-31-2024 09:20-0400 SaO2% (BldA) [Mass fraction] 98 % MD Cathleen Cormier Work Phone: [facility] 07-31-2024 09:20-0400 Systolic blood pressure 142 mm[Hg] MD Cathleen Cormier Work Phone: [facility] 01-09-2023 10:07-0500 Diastolic blood pressure 74 mm[Hg] MD Cathleen Cormier Work Phone: [facility] 01-09-2023 10:07-0500 Heart rate 74 /min MD Cathleen Cormier Work Phone: [facility] 01-09-2023 10:07-0500 Respiratory rate 18 /min MD Cathleen Cormier Work Phone: [facility] 01-09-2023 10:07-0500 SaO2% (BldA) [Mass fraction] 99 % MD Cathleen Cormier Work Phone: [facility] 01-09-2023 10:07-0500 Systolic blood pressure 134 mm[Hg] MD Cathleen Cormier Work Phone: [facility] 01-09-2023 07:08-0500 Body height 182.88 cm MD Cathleen Cormier Work Phone: [facility] 01-09-2023 07:08-0500 Body temperature 98 [degF] MD Cathleen Cormier Work Phone: [facility] 01-09-2023 07:08-0500 Body weight 77.11 kg MD Cathleen Cormier Work Phone: [facility] 07-03-2022 10:05-0400 Body height 182.88 cm Libertad Noland Other [facility] Other 07-03-2022 10:05-0400 Body mass index (BMI) [Ratio] 22.38 kg/m2 [employer] Other [facility] Other 07-03-2022 10:05-0400 Body temperature 100.5 [degF] Libertad Noland Other [facility] Other 07-03-2022 10:05-0400 Body weight 74.84 kg Libertad Noland Other [facility] Other 07-03-2022 10:05-0400 Respiratory rate 18 /min Libertad Noland Other [facility] Other 07-03-2022 10:05-0400 SaO2% (BldA) [Mass fraction] 97 % Libertad Noland Other [facility] Other 04-24-2022 10:10-0400 Body height 182.88 cm Glenny Floyd Other [facility] Other 04-24-2022 10:10-0400 Body mass index (BMI) [Ratio] 22.13 kg/m2 Glenny Floyd Other [facility] Other 04-24-2022 10:10-0400 Body temperature 97.9 [degF] Glenny Floyd Other [facility] Other 04-24-2022 10:10-0400 Body weight 74.03 kg Glenny Floyd Other [facility] Other 04-24-2022 10:10-0400 Diastolic blood pressure 78 mm[Hg] Glenny Floyd Other [facility] Other 04-24-2022 10:10-0400 Respiratory rate 16 /min Glenny Floyd Other [facility] Other 04-24-2022 10:10-0400 SaO2% (BldA) [Mass fraction] 97 % Glenny Floyd Other [facility] Other 04-24-2022 10:10-0400 Systolic blood pressure 123 mm[Hg] Glenny Floyd Other [facility] Other 01-16-2022 11:45-0500 Body height 182.88 cm Ernesto Campos Other [facility] Other 01-16-2022 11:45-0500 Body mass index (BMI) [Ratio] 22.78 kg/m2 Ernesto Campos Other [facility] Other 01-16-2022 11:45-0500 Body weight 76.2 kg Ernesto Dayamiolivia Other [facility] Other 10-15-2021 15:15-0500 Body height 182.88 cm Ernesto Dayamiolivia Other [facility] Other 10-15-2021 15:15-0500 Body mass index (BMI) [Ratio] 22.38 kg/m2 Ernesto Stockolivia Other [facility] Other 10-15-2021 15:15-0500 Body weight 74.84 kg Ernesto Stocker Other [facility] Other 09-17-2021 09:20-0500 Body height 182.88 cm Reed Vee Other [facility] Other 09-17-2021 09:20-0500 Body mass index (BMI) [Ratio] 23.19 kg/m2 Reed Vee Other [facility] Other 09-17-2021 09:20-0500 Body weight 77.57 kg Reed Vee Other [facility] Other 09-17-2021 09:20-0500 Diastolic blood pressure 89 mm[Hg] Reed Vee Other [facility] Other 09-17-2021 09:20-0500 Systolic blood pressure 135 mm[Hg] Reed Vee Other [employer] Other Encounters Encounter Date Encounter Type Care Provider Facility Start: 08-28-2025 ambulatory OUTSOLE LEVELER Rebekah L Irineo Facil ity:[facility] [place] Start: 08-31-2024 End: 08-31-2024 ambulatory OUTSOLE LEVELER Rebekah L Irineo Facility:[facility] [place] Start: 08-31-2024 End: 08-31-2024 Lab Drop off Rebekah L Irineo [facility] Start: 08-25-2024 End: 08-25-2024 ambulatory OUTSOLE LEVELER Erbekah L Irineo Facility:[facility] [place] [facility] Start: 08-11-2024 ambulatory OUTSOLE LEVELER Rebekah Irineo Facilit y:[facility] Start: 08-09-2024 End: 08-09-2024 ambulatory OUTSOLE LEVELER Rebekah L Irineo Facility:[facility] [place] [facility] Start: 07-31-2024 End: 07-31-2024 ambulatory MD Cathleen Cormier Work Phone: [facility] Work Phone: Start: 07-31-2024 End: 07-31-2024 Patient encounter procedure MD Cathleen Cormier Work Phone: [facility] Work Phone: Start: 07-27-2024 End: 07-27-2024 ambulatory OUTSOLE LEVELER Rebekah L Irineo Facility:[facility] [place] [facility] Start: 01-26-2024 End: 01-26-2024 ambulatory YESSICA CAMPOS Not Available Start: 09-16-2023 End: 09-16-2023 Lab Drop off Rebekah L Irineo [facility] Start: 09-16-2023 End: 09-16-2023 ambulatory OUTSOLE LEVELER Rebekah L Irineo Facility:[facility] Start: 01-09-2023 End: 01-09-2023 Admission to same day surgery center MD Cathleen Cormier Work Phone: [facility] Work Phone: Start: 01-09-2023 End: 01-09-2023 ambulatory MD Cathleen Cormier Work Phone: [facility] Work Phone: Start: 12-24-2022 End: 12-25-[address] CATHLEEN CORMIER . Facility:[facility] Start: 09-21-2022 End: 09-21-[address] CATHLEEN CORMIER . Facility:[facility] Start: 08-25-2022 End: 08-25-2022 ambulatory Curtis Medina Other [facility] Other Start: 08-25-2022 Telephone encounter Curtis Bright ck [facility] Start: 07-03-2022 End: 07-03-2022 ambulatory Libertad Noland Other [facility] Other Start: 07-03-2022 Office outpatient visit 25 minutes Libertad Noland [facility] Start: 04-24-2022 End: 04-24-2022 ambulatory Glenny David Other [facility] Other Start: 04-24-2022 Office outpatient visit 15 minutes Glennyyane Floyd [facility] Start: 01-16-2022 End: 01-16-2022 ambulatory Ernesto Campos Other [facility] Other Start: 01-16-2022 Office outpatient visit 15 minutes Ernesto Campos [facility] [place] Start: 10-15-2021 End: 10-15-2021 ambulatory Ernesto Campos Other [facility] Other Start: 10-15-2021 Office outpatient visit 15 minutes Ernesto Campos [facility] [place] Start: 10-08-2021 End: 10-08-2021 ambulatory Ernesto Campos Other [facility] Other Start: 10-08-2021 Telephone encounter Ernesto GONZALEZ [facility] [employer] Start: 09-30-2021 End: 09-30-2021 ambulatory Ernesto Campos Other [facility] Other Start: 09-30-2021 Office outpatient ne w 45 minutes Ernesto Campos [facility] [place] Start: 09-17-2021 End: 09-17-[address] Vee Other [facility] [employer] Other Start: 09-17-2021 Office outpatient ne w 30 minutes Reed Vee [facility] Neurosurgery Procedures Date Procedure Procedure Detail Performing Clinician Start: 07-31-2024 Plain chest X-ray MD Yonathan Cormier Work Phone: Start: 01-09-2023 Colonoscopy MD Cathleen lilly Work Phone: Colonoscopy Rebekah Irineo Comment on above: repeat 5 years Surgical procedure Rebekah Schw ab Tonsillectomy and adenoidectomy Rebekah Irineo Plan of Treatment Date Care Activity Detail Author Start: 01-09-2023 [facility] Immunizations Immunization Date Immunization Notes Care Provider Fa [facility] 08-25-2024 influenza, high dose seasonal, preservative-free; Translations: [Fluzone High Dose Vaccine] Rebekah Irineo [facility] 12-18-2021 SARS-CoV-2 (COVID-19 ) mRNA BNT-162b2 vax Rebekah Irineo [facility] 04-17-2021 SARS-CoV-2 (COVID-19 ) mRNA BNT-162b2 vax Rebekah Irineo [facility] Comment on above: Result Comment: 2022: TPV65 03-27-2021 SARS-CoV-2 (COVID-19 ) mRNA BNT-162b2 vax Rebekah Irineo [facility] Comment on above: Result Comment: 2022: TPV65 02-25-2021 pneumococcal polysaccharide vaccine, 23 valent Rebekah Irineo [facility] 02-25-2021 zoster vaccine recombinant Rebekah Irineo [facility] 09-19-2020 influenza virus vacc ine, unspecified formulation Rebekah Irineo [facility] 09-19-2020 zoster vaccine recombinant Rebekah Irineo [facility] 07-17-2017 pneumococcal conjuga te vaccine, 13 valent Rebekah Irineo [facility] 08-08-2014 influenza virus vacc ine, unspecified formulation Rebekah Irineo [facility] Payers Date Payer Category Payer Self-pay [id number] 1959 Medicare [id number] 2.1 [id number] 1959 Medicare [id number] 2. [id number] 1955 Unknown [id number] 2.16.84 [id number] 1955 Unknown [id number] 2.16.84 [id number] 1955 Unknown [id number] 2.16.84 [id number] 1955 Unknown [id number] 2.16.8 [id number] 1955 Unknown [id number] 2.16.8 40.1.136085.3.579.2.727 1955 Unknown [id number] 2.16.8 40.1.363418.3.579.2.727 1955 Unknown [id number] 2.16.8 40.1.735348.3.579.2.727 1955 Unknown [id number] 2.16.8 40.1.714661.3.579.2.727 1955 Unknown [id number] 2.16.8 40.1.544720.3.579.2.727 1955 Unknown [id number] 2.16.8 40.1.506520.3.579.2.727 1955 Unknown [id number] 2.16.8 [id number] Unknown [id number] 2.16.8 [id number] Social History Date Type Detail Facility Unknown if ever smoked [facility] Other Sex Assigned At [facility] Start: 01-09-2023 End: 01-09-2023 Tobacco smoking status NHIS Smoker (finding) [facility] Start: 1955 Sex Assigned At Male F [facility] Start: 09-16-2023 Tobacco smoking status Heavy t obacco smoker (finding) [facility] Start: 08-25-2024 Tobacco smoking status Ex-smoker (fi nding) [facility] Comment on above: patient is a former smoker that quit at age 68. Patient did smoke 1 ppd x 30 years. Goals Date Patient Goal Desired Activity /State Clinical Notes 09-17-2021 to 08-25-2024 Note Date & Type Note Facility 08-25-2024 Note Patient Education Mental and Behavioral Health Living with COPD Being diagnosed with chronic obstructive pulmonary disease (COPD) changes your life physically and emotionally. Having COPD can affect your ability to work and do things you enjoy. COPD is not the same for everyone, and it may change control analyst time. Your health care providers can help you come up with the COPD management plan that works best for you. How to manage lifestyle changes Treatment plan ? Work closely with your health care providers. ? Follow your COPD management plan. This plan includes: ? Instructions about activities, exercises, diet, medicines, what to do when COPD flares up, and when to call your health care provider. ? A pulmonary rehabilitation program. In pulmonary rehab, you will learn about COPD, do exercises for fitness and breathing, and get support from health care providers and other people who have COPD. Managing emotions and stress Living with a chronic disease means you may also struggle with stressful emotions, such as sadness, fear, and worry. Here are some ways to manage these emotions: ? Talk to someone about your fear, anxiety, depression, or stress. ? Learn strategies to avoid or reduce stress and ask for help if you are struggling with depression or anxiety. ? Consider joining a COPD support group, online or in person. Adjusting to changes COPD may limit the things you can do, but you can make certain changes to help you cope with the diagnosis. ? Ask for help when you need it. Getting support from friends, family, and your health care team is an important part of managing the condition. ? Try to get regular exercise as prescribed by a health care provider or pulmonary rehab team. Exercising can help COPD, even if you are a bit short of breath. ? Take steps to prevent infection and protect your lungs: ? Wash your hands often and avoid being in crowds. ? Stay away from friends and family members who are sick. ? Check your local air quality each day, and stay out of areas where air pollution is likely. How to recognize changes in your condition Recognizing changes in your COPD COPD is a progressive disease. It is important to let the health care team know if your COPD is getting worse. Your treatment plan may need to change. Watch for: ? Increased shortness of breath, wheezing, cough, or fatigue. ? Loss of ability to exercise or perform daily activities, like climbing stairs. ? More frequent symptom flares. ? Signs of depression or anxiety. Recognizing stress It is normal to have additional stress when you have COPD. However, prolonged stress and anxiety can make COPD worse and lead to depression. Recognize the warning signs, which include: ? Feeling sad or worried more often or most of the time. ? Having less energy and losing interest in pleasurable activities. ? Changes in your appetite or sleeping patterns. ? Being easily angered or irritated. ? Having unexplained aches and pains, digestive problems, or headaches. Follow these instructions at home: Eating and drinking ? Eat foods that are high in fiber, such as fresh fruits and vegetables, whole grains, and beans. Limit foods that are high in fat and processed sugars, such as fried or sweet foods. ? Follow a balanced diet and maintain a healthy weight. Being overweight or underweight can make COPD worse. You may work with a dietitian as part of your pulmonary rehab program. ? Drink enough fluid to keep your urine pale yellow. ? If you drink alcohol: ? Limit how much you have to: ? 0?1 drink a day for women who are not . ? 0?2 drinks a day for men. ? Know how much alcohol is in your drink. In the [place] one drink equals one 12 oz bottle of beer (355 mL), one 5 oz glass of wine (148 mL), or one 1? oz glass of hard liquor (44 mL). Lifestyle ? If you smoke, the most important thing that you can do is to stop smoking. Continuing to smoke will cause the disease to progress faster. ? Do not use any products that contain nicotine or tobacco. These products include cigarettes, chewing tobacco, and vaping devices, such as e-cigarettes. If you need help quitting, ask your health care provider. ? Avoid exposure to things that irritate your lungs, such as smoke, chemicals, and fumes. Activity ? Balance exercise and rest. Take short walks every 1?2 hours. This is important to improve blood flow and breathing. Ask for help if you feel weak or unsteady. ? Do exercises that include controlled breathing with body movement, such as sandy chi. General instructions ? Take ewjo-ajg-fopspdq and prescription medicines only as told by your health care provider. ? Take vitamin and protein supplements as told by your health care provider or dietitian. ? Practice good oral hygiene and see your dental care provider regularly. An oral infection can also spread to your lungs. ? Make sure you receive (more content not included)... [facility] 01-09-2023 Procedure note [facility] 08-25-2022 Evaluation note Encounter Date Diagnosis Assessment Notes Aug, History of colon polyps (ICD-10 - Z86.010) [facility] Other 08-25-2022 Evaluation note* Encounter Date Diagnosis Assessment Notes Treatment Notes Treatment Clinical Notes Jun, Contact with and (suspected) exposure to other viral communicable diseases (ICD-10 - Z20.828) Jun, Bronchitis (ICD-10 - J40) Advised patient that COVID PCR test was negative. Discussed diagnosis with patient in detail. Advised patient that cough may linger for 3 weeks. Will treat today with antibiotic. Reviewed allergies and recent antibiotic use. Advised to take medications as prescribed, reviewed side effects of steroid, take with food and plenty of water, finish entire course. Encouraged supportive care as directed, push fluids and rest, may use Tylenol as needed for fever/discomfort, cool mist humidifier. May use Tessalon Perles and Albuterol Inhaler as needed. Patient to follow up with PCP in 2-3 days. Immediate eval if SOB, difficulty breathing, chest pain, dizziness, or other concerning symptoms. Patient verbalizes understanding and is agreeable to treatment plan [facility] Other 06-16-2022 Evaluation note* Encounter Date Diagnosis Assessment Notes Treatment Notes Treatment Clinical Notes Apr, Injury of left upper arm, initial encounter (ICD-10 - S49.92XA) Elevate. Apply ice to affected area 3-4 times daily (Do not place ice source directly on skin, must cover with towel-like material). Take medication as directed. Rest and elevate sore extremity as much as possible. Do not take OTC medication pain relievers if prescription of medication given in office today. Contact office if no improvement of symptoms and we will help you get into a specialist by Thursday [facility] Other 03-10-2022 Evaluation note* Encounter Date Diagnosis Assessment Notes Treatment Notes Treatment Clinical Notes Jan, Inflammation of both sacroiliac joints (ICD-10 - M46.1) Jan, Other low back pain (ICD-10 - M54.59) Patients primary complaint today is low back pain, most bothersome on the right side, consistent with facet pain upon exam. We will continue to monitor and proceed with future treatment as needed. We discussed the possible benefit of facet medial branch block and subsequent radiofrequency ablation however the patient feels his pain is tolerable at this time. He was provided with educational literature for further consideration. He will call our office should his symptoms worsen and he wish to proceed with this. Anatomy of spine discussed in detail with patient in regards to patients condition. Overall, patient believes their pain is reasonably well controlled and he is in agreement with our treatment plan. Jan, Other chronic pain (ICD-10 - G89.29) Jan, Other Above note writ ten by Braden Charlton MA, [employer]. Edited and approved by Dr. Ernesto Campos MD. [facility] Other 12-07-2021 Evaluation note* Encounter Date Diagnosis Assessment Notes Treatment Notes Treatment Clinical Notes Oct, Inflammation of both sacroiliac joints (ICD-10 - M46.1) Patient voices minimal complaints of pain at this time. He attributes this to recent bilateral sacroiliac joint injections. We will continue to monitor his symptoms. He has been advised of the importance of activity modification and limitations. Overall, patient believes their pain is reasonably well controlled and he is in agreement with our treatment plan. Oct, Other low back pain (ICD-10 - M54.59) Oct, Other chronic pain (ICD-10 - G89.29) Oct, Other Above note writ ten by Braden Charlton MA, [employer]idential [employer]. Edited and approved by Dr. Ernesto Campos MD. [facility] Other 11-22-2021 Evaluation note* Encounter Date Diagnosis Assessment Notes Treatment Notes Treatment Clinical Notes Sep, Inflammation of both sacroiliac joints (ICD-10 - M46.1) Patients primary complaint of pain today is low lumbar and gluteal pain, consistent with the sacroilaic region upon exam. Recent MRI results show evidence moderate stenosis at L4-5 with the right being greater than left however this does not appear consistent with the patients pain. Based on location of pain and exam findings, patient is a candidate for bilateral sacroiliac joint injections which we will proceed with. Risks and benefits of procedure explained to patient; patient verbalizes understanding. Anatomy of spine discussed in detail with patient in regards to patients condition. Sep, Other low back pain (ICD-10 - M54.59) Sep, Other chronic pain (ICD-10 - G89.29) Sep, Other Above note written by Braden Charlton MA, [employer]. Edited and approved by Dr. Ernesto Campos MD. Medical decision making shows a new problem to me with further workup planned or suggested with the potential for extensive treatment options that were considered with the most applicable given this patient's situation as noted above. Treatment options considered include a combination of physical therapy approaches, pharmacologic management, and interventional procedures. Those most applicable to the patient were discussed at this time. Risk of complications and/or morbidity and mortality is high given that acute and chronic pain poses a threat to life and bodily function if undertreated, poorly treated or with failure to maintain adequate treatment and timely followup. Given the serious and fluctuating nature of pain with extensive consideration for whenever pain changes, there always remains the possibility of prolonged functional impairment requiring constant patient reassessment and high-level medical decision making. The amount and complexity of data reviewed is high given that patient labs, radiology reports, and other test were obtained, reviewed and summarized as applicable from the physician portal and/or outside medical records. Pertinent positive and negative findings were considered in medical decision-making. [facility] Other 11-09-2021 Evaluation note* Encounter Date Diagnosis Assessment Notes Treatment Notes Treatment Clinical Notes Sep, Inflammation of both sacroiliac joints (ICD-10 - M46.1) I have independently reviewed the MRI of the lumbar spine and the report. The patient has a moderate stenosis at L4-5 with the right being greater than left. His back is in good alignment there appears to be no gross malalignment or instability. This gentleman has only sacroiliac pain bilaterally. It certainly is bothersome to him and could get worse over time but does not need surgical intervention. I discussed this with the patient in detail. My recommendation is for pain management; he has not seen pain management in over a year and now he would like to be seen in the [facility] and I have given him a referral. 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 [facility] Other evaluation + Plan note No data available for this [facility] Future App[facility]ments Appointment Date:08/28/2025 08:00:00 AM Scheduled Provider: Location:[facility] Appointment Type:FM Medicare Wellness Subsequent Diagnostic Tests Pending * HCV Antibody RFX to Quant PCR 08/31/24 [facility] Evaluation noteNo InformationNortDepartment of [facility] Other Evaluation note* Diagnosis Onset Date Resolution Status Hx of colonoscopy with polypectomy [facility] Work Phone: Evaluation note* Diagnosis Onset Date Resolution Status Bronchitis acute [facility] Work Phone: History general Narrative - Reported* Type Description Date Medical History Spasm of muscle of lower back Medical History Erectile dysfunction , unspecified erectile dysfunction type Surgical History hernia Surgical History knee arthroscopy Surgical History tonsillectomy Surgical History colonoscopy Surgical History vasectomy Hospitalization History see above [facility] Other Hospital Discharge instructions Additional Instructions DISCHARGE INSTRUCTIONS FOR ENDOSCOPY FOR COLONOSCOPY: -Expect a gassy or full feeling after a colonoscopy. Report any NEW abdominal pain or vomiting. FOR SEDATION FOR 24 HOURS: -NO driving -Do NOT operate machinery such as power tools, lawn mowers, snow blowers, sewing machines, etc. -Avoid alcoholic beverages and drugs for allergies, nerves, or sleep. -Do NOT stay alone. Do NOT leave your child unattended. -Do NOT make important personal or business decisions or sign any legal documents. -Eat solid foods and drink liquids in smaller amounts than usual until normal appetite returns. If you should experience an upset stomach, liquids high in sugar content (soda, Mg-aid, non-acid juices) are recommended. -You can resume normal activities tomorrow. FOLLOW UP Please call the office and make a follow up appointment to see me as needed. Repeat colonoscopy in 5 years -Notify the doctor if you have any problems. -Office number [phone] Work Phone: Hospital Discharge instructions No data available for this section [facility] No data available for this section [facility] Reason for Referral Reason Evaluate and Tr eat Diagnosis 1 Inflammation of both sacroiliac joints (M46.1) Referral Organization [facility] Ne urosurgery Referring Provider First Name Reed Referring Provider Last Name Gabriela Referring Provider Specialty Neurologica l Surgery Referred Organization [facility] Referred Provider Ernesto Campos Referred Address [address] [place],[address] Referred Provider Specialty Pain Medicin e Referral Priority Routine General Notes Eve Garza 021 02:16:39 PM >Received today and sent P2P Summary Purpose Family History No Family History Records Found Relationship Condition Age at Onset Recorded Date/T trey Not Specified Congestive heart failure Unknown Relationship Condition Age at Onset Recorded Date/T trey mother Congestive heart failure Unknown father Unknown mother Heart disease Unknown Unknown Advance Directives No Advanced Directives Records Found Advance Directive Response Recorded Date/ Time Advance Directives No April 24 1:20pm Advance Directive Response Recorded Date/ Time Advance Directives No October 5:23pm Chief Complaint and Reason for Visit Chief Complaint Hx of Colon Polyps Reason for Visit Hx of colonoscopy wi th polypectomy Chief Complaint cough,fever r/o pneumonia Reason for Visit Bronchitis Additional Source Comments REASON FOR VISIT (unrecogniz ed section and content) Referred Dr Cormier Lumbar Ra diculopathyREF BY DR REED VEE FOR INFLAMMATION OF BILATERAL SACROILIAC JOINTSPain Medicine Office NotesFOLLOW UP AFTER MARLENE SI JOINT INJ3 monthsLEFT ARM PAIN, HAD TO JERK WINDOW OPEN AND FELT A POPBLACK MINI BALDEMAR, COUGH, CONGESTIONCOVID TESTING (unrecognized sect ion and content) No Status Records FoundNo Status Records FoundNo Status Records FoundNo Status Records FoundNo Status Records FoundNo Status Records FoundNo Status Records FoundNo Status Records Found INFORMATION SOURCE (unrecogn ized section and content) DATE CREATED AUTHOR 12/29/2022 [facility] DATE CREATED AUTHOR AUTHOR'S ORGANIZ ATION 01/27/2024 [facility] EPIC DATE CREATED AUTHOR AUTHOR'S ORGANIZ ATION 08/02/2024 [facility] DATE CREATED AUTHOR AUTHOR'S ORGANIZ ATION 08/27/2024 [facility] DATE CREATED AUTHOR AUTHOR'S ORGANIZ ATION 09/02/2024 [facility] DATE CREATED AUTHOR AUTHOR'S ORGANIZ ATION 09/03/2024 [facility] DATE CREATED AUTHOR AUTHOR'S ORGANIZ ATION 09/06/2024 [facility] Care Teams (unrecognized sec tion and content) Team Status: Inactive Member Role Status Dates Cathleen Cormier MD Primary Care Provider Active Curtis Medina MD Attending Provider Active Team Status: Active Member Role Status Dates Cathleen Cormier MD Primary Care Provider Active Team Status: Inactive Member Role Status Dates Cathleen Cormier MD Primary Care Provider Active S tart: July 31, 2024 End: July 31, 2024 Cheryl Edmond APRN Attending Provider Active S tart: July 31, 2024 End: July 31, 2024 Goals (unrecognized section and content) Goals may be documented in a n alternate section FOR RECORDS PERTAINING TO PATIENTS WHO ARE OR HAVE BEEN ENROLLED IN A CHEMICAL DEPENDENCY/SUBSTANCEABUSE PROGRAM, SOME INFORMATION MAY BE OMITTED. This clinical summary was aggregated from multiple sources. Caution should be exercised in using it in the provision of clinical care. This summary normalizes information from multiple sources, and as a consequence, information in this document may materially change the coding, format and clinical context of patient data. In addition, data may be omitted in some cases. CLINICAL DECISIONS SHOULD BE BASED ON THE PRIMARY CLINICAL RECORDS. [facility] [employer] provides no warranty or guarantee of the accuracy or completeness of information in this document.
--- NOTE | 2024-09-08 10:02 | CT_ITS ---
[address] [address] Patient Name: TEZ MEJIA MRN: [id number] date: 1955 Sex: M Assigned Patient Location: CT Current Patient Location: Accession/Order Number: [id number] Exam Date: 09/08/2024 10:05 Report Date: 09/10/2024 06:32 At the request of: ROXANA BARTLETT Procedure: CT lung screening low-dose EXAMINATION: CT lung screening low-dose HISTORY: personal history of nicotine dependence Z87.891 COMPARISON: CT lung screening 12/24/2022 TECHNIQUE: Axial, Coronal, and Sagittal images were created without the administration of IV contrast material. Dose reduction techniques were achieved by using automated exposure control and/or adjustment of mA and/or kV according to patient size and/or use of iterative reconstruction technique. FINDINGS: LUNGS: Stable appearance of a few tiny calcified and noncalcified nodules bilaterally; largest noncalcified nodule is 4 mm within right middle lobe, series 4 image 82. No significant emphysematous changes. No acute infiltrates. PLEURA: No mass, effusion, or pneumothorax. VASCULATURE: No abnormality. ZORAIDA: No mass or pathologic adenopathy. MEDIASTINUM: No mass or pathologic adenopathy. CARDIAC: No enlargement, pericardial thickening, or pericardial effusion. Coronary Artery calcifications: AORTA: No aneurysm or dissection. CHEST WALL: No mass or axillary adenopathy BONES: No bone lesion or fracture. LIMITED ABDOMEN: No suspicious findings. Limited images of the upper abdomen. OTHER: Negative. CT/CT lung screening low-dose IMPRESSION: 1. Lung-RADS 2- Benign Appearance or Behavior. Nodules with a very low likelihood of becoming a clinically active cancer due to size or lack of growth. Follow-up CT Chest in 1 year. Electronically authenticated by: ASHER MARTE Date: 09/10/2024 06:32
== END 2024-09-08 09:54 | disposition home or self-care (01) ==
LOC: CT 09:55
PROVIDERS: PCP Nurse Practitioner; Visit Provider Nurse Practitioner
DX: Z87.891 Personal history of nicotine dependence (principal)
CPT/HCPCS: 71271